=== PATIENT | female | born 1970 | race Caucasian/White ===

== ENCOUNTER → 2018-03-28 | Outpatient (CLI) | payer OTHER ==
--- NOTE | 2018-03-28 14:06 | XR ---
EXAMINATION TYPE: XR elbow complete RT, XR forearm RT DATE OF EXAM: 03/28/2018 CLINICAL HISTORY: pain TECHNIQUE: Frontal, lateral and oblique images of the right elbow are obtained. COMPARISON: None. FINDINGS: There is no acute fracture/dislocation evident of the elbow. No abnormal fat pad signs ar e seen. The overlying soft tissue appears unremarkable. IMPRESSION: There is no acute fracture or dislocation of the elbow. ICD 10 NO FRACTURE, INITIAL EVALUATION EXAMINATION TYPE: XR elbow complete RT, XR forearm RT DATE OF EXAM: 03/28/2018 CLINICAL HISTORY: pain TECHNIQUE: Frontal and lateral images of the right forearm are obtained. COMPARISON: None. FINDINGS: There is no acute fracture/dislocation evident. The joint spaces appear within normal limi ts. The overlying soft tissue appears unremarkable. IMPRESSION: There is no acute fracture or dislocation. ICD 10 NO FRACTURE, INITIAL EVALUATION
== END | disposition home or self-care (01) ==
LOC: RADXRMAIN 13:31
PROVIDERS: ATTEND Emergency Medicine
DX: M25.521 Pain in right elbow (principal); R20.9 Unspecified disturbances of skin sensation

== ENCOUNTER 2018-04-21 12:34 | Observation (INO) | payer OTHER ==
[2018-04-21] MEDS ORDERED: SODIUM CHLORIDE 0.9% 1,000 ML IV STA (14:24)
--- NOTE | 2018-04-21 15:03 | ED ---
Abdominal Pain HPI - General Source: patient Mode of arrival: ambulatory Limitations: no limitations <Susanne Elizondo - Last Filed: 04/21/18 18:43> <Dasia Lewis - Last Filed: 04/21/18 20:35> - General Chief Complaint: Abdominal Pain Stated Complaint: abd pain Time Seen by Provider: 04/21/18 13:51 - History of Present Illness Initial Comments: 47-year-old female patient presents to the emergency department today with several complaints. Patient states that for the last 3 days she has been profusely sweating. Patient states that she is soaking through clothing. Patient states that she does note that she is going through menopause however she has never had sweating this bad. States that she is also developed a rash over her buttocks and thighs. Patient states that this has been going on for the last 2 weeks on and off. Patient denies any drainage from the lesions. There are no blisters. Patient states that they do occasionally itch. Patient states she has also been having nonspecific abdominal pain with bloating especially after meals. Patient states his been going on for the last several days as well. Patient states that she has had some intermittent nausea with no vomiting. She has a history of IBS alternating diarrhea and constipation. She is also reporting generalized prickling sensation intermittently as well. Patient denies any recent fever, chills, shortness breath, chest pain, back pain, dizziness, weakness, hematuria, dysuria, urinary urgency, urinary frequency, headache, visual changes, or any other complaints. (Susanne Elizondo) - Related Data Home Medications Medication Instructions Recorded Confirmed Black Cohosh 540 mg PO DAILY 04/21/18 04/21/18 Cyclobenzaprine [Flexeril] 10 mg PO DAILY 04/21/18 04/21/18 Dicyclomine [Bentyl] 20 mg PO DAILY 04/21/18 04/21/18 Docusate Sodium [Dok] 100 mg PO BID 04/21/18 04/21/18 Etodolac [Lodine] 400 mg PO TID 04/21/18 04/21/18 Gabapentin [Neurontin] 100 mg PO TID 04/21/18 04/21/18 Gabapentin [Neurontin] 300 mg PO DAILY 04/21/18 04/21/18 Ibuprofen [Motrin] 800 mg PO TID PRN 04/21/18 04/21/18 Loratadine [Claritin] 10 mg PO DAILY 04/21/18 04/21/18 Ranitidine HCl [Zantac] 150 mg PO BID 04/21/18 04/21/18 Thiamine [Vitamin B-1] 50 mg PO DAILY 04/21/18 04/21/18 traZODone HCL 75 mg PO HS 04/21/18 04/21/18 Allergies Allergy/AdvReac Type Severity Reaction Status Date / Time No Known Allergies Allergy Verified 04/21/18 19:06 Review of Systems ROS Other: All systems not noted in ROS Statement are negative. <Susanne Elizondo - Last Filed: 04/21/18 18:43> ROS Other: All systems not noted in ROS Statement are negative. <Dasia Lewis - Last Filed: 04/21/18 20:35> ROS Statement: Those systems with pertinent positive or pertinent negative responses have been documented in the HPI. Past Medical History Past Medical History: COPD, GERD/Reflux Additional Past Medical History / Comment(s): ibs History of Any Multi-Drug Resistant Organisms: None Reported Past Surgical History: No Surgical Hx Reported Past Psychological History: Anxiety Smoking Status: Current every day smoker Past Alcohol Use History: Occasional Past Drug Use History: None Reported <Susanne Elizondo - Last Filed: 04/21/18 18:43> General Exam Limitations: no limitations General appearance: alert, in no apparent distress, other (Social well-developed , well-nourished adult female patient in no acute distress. Vital signs upon presentation are temperature 98.4F, pulse 87, respirations 18, blood pressure 132/86, pulse ox 100% on room air.) Eye exam: Present: normal appearance, PERRL, EOMI. Absent: scleral icterus, conjunctival injection, periorbital swelling ENT exam: Present: normal exam, normal oropharynx, mucous membranes moist Respiratory exam: Present: normal lung sounds bilaterally. Absent: respiratory distress, wheezes, rales, rhonchi, stridor Cardiovascular Exam: Present: regular rate, normal rhythm, normal heart sounds. Absent: systolic murmur, diastolic murmur, rubs, gallop, clicks GI/Abdominal exam: Present: soft, normal bowel sounds. Absent: distended, tenderness, guarding, rebound, rigid Neurological exam: Present: alert, oriented X3, CN II-XII intact Psychiatric exam: Present: normal affect, normal mood Skin exam: Present: warm, dry, intact, normal color, rash Expanded Type of lesion: Present: rash Distribution of rash: other (Buttocks, anterior upper thigh, posterior upper thights. Erythematous pustules with no surrounding erythema. Non-petechial, non- vesicular. Consistent with body acne. ) <Susanne Elizondo - Last Filed: 04/21/18 18:43> Vital Signs 04/21/18 04/21/18 12:37 16:30 Temperature 98.4 F Pulse Rate 87 67 Respiratory 18 16 Rate Blood Pressure 132/86 150/82 O2 Sat by Pulse 100 99 Oximetry Medical Decision Making - Lab Data Result diagrams: 04/21/18 15:10 04/21/18 15:10 - EKG Data -: EKG Interpreted by Me - Radiology Data Radiology results: report reviewed <Susanne Elizondo - Last Filed: 04/21/18 18:43> - Lab Data Result diagrams: 04/21/18 15:10 04/21/18 15:10 <Dasia Lewis - Last Filed: 04/21/18 20:35> - Medical Decision Making 47-year-old male patient presented to the emergency department today for evaluation of generalized abdominal discomfort and abdominal bloating. Patient also had rash to the buttocks and left lateral thigh. She is also complaining of sweats. Physical examination did reveal some midepigastric abdominal tenderness, right upper quadrant abdominal tenderness. Labs reviewed and showed an elevated AST at 204, a LT at 328, alkaline phosphatase at 133. Ultrasound of the abdomen was obtained and did show large stone at the gallbladder neck. Case was discussed with Dr. Miller who recommends admission , administration of antibiotics, and surgical evaluations tomorrow. IV fluids will be provided. (Susanne Elizondo) The patient was seen and evaluated independently by the nurse practitioner. Patient with multiple complaints including abdominal bloating and discomfort, noted to have elevated transaminase levels, ultrasound did reveal an acute cholecystitis with a gallbladder neck stone. I was asked to evaluate the patient and consult surgery. I evaluated the patient, upon my evaluation the patient had vague right upper quadrant abdominal pain however patient does report at this time her nausea is resolved and she is feeling hungry. I advised the patient of the lab and ultrasound findings, plan for admission for IV antibiotics and evaluation by general surgical team. Patient is agreeable. She care was discussed with general surgery on-call Dr. Miller whom accepts the patient to his service, recommended IV antibiotics and nothing by mouth status. (Dasia Lewis) - Lab Data Lab Results 04/21/18 04/21/18 04/21/18 Range/Units 15:10 15:10 16:20 WBC 9.0 (3.8-10.6) k/uL RBC 4.66 (3.80-5.40) m/uL Hgb 14.8 (11.4-16.0) gm/dL Hct 44.0 (34.0-46.0) % MCV 94.3 (80.0-100.0) fL MCH 31.7 (25.0-35.0) pg MCHC 33.6 (31.0-37.0) g/dL RDW 12.9 (11.5-15.5) % Plt Count 247 (150-450) k/uL Neutrophils % 57 % Lymphocytes % 31 % Monocytes % 7 % Eosinophils % 2 % Basophils % 0 % Neutrophils # 5.1 (1.3-7.7) k/uL Lymphocytes # 2.8 (1.0-4.8) k/uL Monocytes # 0.6 (0-1.0) k/uL Eosinophils # 0.2 (0-0.7) k/uL Basophils # 0.0 (0-0.2) k/uL Sodium 140 (137-145) mmol/L Potassium 4.6 (3.5-5.1) mmol/L Chloride 105 (98-107) mmol/L Carbon Dioxide 26 (22-30) mmol/L Anion Gap 9 mmol/L BUN 19 H (7-17) mg/dL Creatinine 0.77 (0.52-1.04) mg/dL Est GFR (CKD-EPI)AfAm >90 (>60 ml/min/1.73 sqM) Est GFR (CKD-EPI)NonAf >90 (>60 ml/min/1.73 sqM) Glucose 87 (74-99) mg/dL Calcium 9.9 (8.4-10.2) mg/dL Magnesium 1.9 (1.6-2.3) mg/dL Total Bilirubin 0.5 (0.2-1.3) mg/dL AST 204 H (14-36) U/L ALT 328 H (9-52) U/L Alkaline Phosphatase 133 H (38-126) U/L Total Protein 8.2 (6.3-8.2) g/dL Albumin 4.5 (3.5-5.0) g/dL Amylase 47 (30-110) U/L Lipase 56 (23-300) U/L TSH 1.590 (0.465-4.680) mIU/L Urine Color Yellow Urine Appearance Cloudy H (Clear) Urine pH 5.0 (5.0-8.0) Ur Specific [place] 1.011 (1.001-1.035) Urine Protein Negative (Negative) Urine Glucose (UA) Negative (Negative) Urine Ketones Negative (Negative) Urine Blood Negative (Negative) Urine Nitrite Negative (Negative) Urine Bilirubin Negative (Negative) Urine Urobilinogen <2.0 (<2.0) mg/dL Ur Leukocyte Esterase Trace H (Negative) Urine RBC <1 (0-5) /hpf Urine WBC 5 (0-5) /hpf Ur Squamous Epith Cells 7 H (0-4) /hpf Urine Bacteria Occasional H (None) /hpf Urine Mucus Rare H (None) /hpf - EKG Data EKG Comments: EKG obtained at 1515 shows normal sinus rhythm with a prolonged QT interval. Ventricular rate is 70, NH interval 172, QR mu-ism 86, QT 448, QTC 483. No evidence of ST elevation or depression (Susanne Elizondo) - Radiology Data Ultrasound of the abdomen was obtained. Report was reviewed in its entirety. Impression by Dr. Castro shows large gallstone at the gallbladder neck. No dilated ducts. (Susanne Elizondo) Disposition Decision to Admit Reason: Admit from EC Decision Date: 04/21/18 Decision Time: 18:01 <Susanne Elizondo - Last Filed: 04/21/18 18:43> <Dasia Lewis - Last Filed: 04/21/18 20:35> Clinical Impression: Cholelithiasis, Abdominal pain Disposition: ADMITTED IP TO THIS [facility] Condition: Serious
[2018-04-21 15:15] LABS: Basophils % (A) 0 %; Eosinophils # (A) 0.2 k/uL (0-0.7); Eosinophils % (A) 2 %; HGB 14.8 gm/dL (11.4-16.0); Lymphocytes # (A) 2.8 k/uL (1.0-4.8); Lymphocytes % (A) 31 %; MCH 31.7 pg (25.0-35.0); MCHC 33.6 g/dL (31.0-37.0); MCV 94.3 fL (80.0-100.0); Mean Platelet Volume 7.8; Monocytes # (A) 0.6 k/uL (0-1.0); Monocytes % (A) 7 %; Neutrophils # (A) 5.1 k/uL (1.3-7.7); Neutrophils % (A) 57 %; Platelet Count 247 k/uL (150-450); RBC 4.66 m/uL (3.80-5.40); RDW 12.9 % (11.5-15.5)
[2018-04-21 15:40] LABS: ALT 328 U/L (9-52); AST 204 U/L (14-36); Albumin 4.5 g/dL (3.5-5.0); Alkaline Phosphatase 133 U/L (38-126); Amylase 47 U/L (30-110); Anion Gap 9 mmol/L; Blood Urea Nitrogen 19 mg/dL (7-17); Calcium 9.9 mg/dL (8.4-10.2); Carbon Dioxide 26 mmol/L (22-30); Chloride 105 mmol/L (98-107); Glucose 87 mg/dL (74-99); Lipase 56 U/L (23-300); Magnesium 1.9 mg/dL (1.6-2.3); Potassium 4.6 mmol/L (3.5-5.1); Sodium 140 mmol/L (137-145); Total Bilirubin 0.5 mg/dL (0.2-1.3); Total Protein 8.2 g/dL (6.3-8.2)
[2018-04-21 16:37] LABS: Appearance,Urine Cloudy (Clear); Bacteria,Urine Occasional /hpf; Bilirubin,Urine Negative (Negative); Blood,Urine Negative (Negative); Color,Urine Yellow; Glucose,Urine (UA) Negative (Negative); Ketones,Urine Negative (Negative); Leukocyte Esterase,Urine Trace (Negative); Mucus,Urine Rare /hpf; Nitrite,Urine Negative (Negative); Protein,Urine Negative (Negative); RBC,Urine <1 /hpf (0-5); Specific Gravity,Urine 1.011 (1.001-1.035); Squamous Epithelial Cell,Urine 7 /hpf (0-4); Urobilinogen,Urine <2.0 mg/dL (<2.0); WBC,Urine 5 /hpf (0-5)
--- NOTE | 2018-04-21 17:19 | US ---
EXAMINATION TYPE: US abdomen limited DATE OF EXAM: 04/21/2018 COMPARISON: NONE CLINICAL HISTORY: Elevated LFT; Abd Pain. EXAM MEASUREMENTS: Liver Length: 17.5 cm Gallbladder Wall: 0.3 cm CBD: 0.4 cm Right Kidney: 10.7 x 5.0 x 5.2 cm Limited due to bowel gas. Pancreas: Appears slightly increased echogenicity, Tail obscured by overlying bowel gas Liver: wnl Gallbladder: Cholelithiasis 1.6 x 1.4 x 1.7 cm Evidence for sonographic Pichardo's sign: Yes CBD: wnl Right Kidney: wnl IMPRESSION: Large gallstone at the gallbladder neck. No dilated ducts.
[2018-04-21] MEDS ORDERED: NALOXONE 0.4 MG/ML 1 ML VIAL IV PRN (17:47)
[2018-04-21] MEDS ORDERED: ACETAMINOPHEN TAB 325 MG TAB PO PRN (17:47)
[2018-04-21] MEDS ORDERED: MORPHINE SULFATE 4 MG/ML SYRINGE IV PRN (17:47)
[2018-04-21] MEDS ORDERED: ONDANSETRON 4 MG/2 ML VIAL IVP PRN (17:47)
[2018-04-21] MEDS ORDERED: PIPERACILLIN-TAZOBACTAM 3.375 GM in DEXTROSE/WATER 1 50ML.BAG IVPB STA (17:50)
[2018-04-21] MEDS: LORazepam 1 MG TAB PO PRN (19:51)
[2018-04-21] MEDS: NICOTINE 21MG/24HR PATCH TRANSDERM SCH (19:53)
[2018-04-21 20:36] VITALS: BMI 31.2
[2018-04-21] MEDS: SODIUM CHLORIDE 0.9% 1,000 ML IV SCH (20:52)
[2018-04-22] MEDS: LORazepam 1 MG TAB PO PRN ×2 (04:15→19:02)
[2018-04-22 06:54] LABS: Basophils % (A) 0 %; Eosinophils # (A) 0.1 k/uL (0-0.7); Eosinophils % (A) 1 %; HCT 38.4 % (34.0-46.0); HGB 12.9 gm/dL (11.4-16.0); Lymphocytes # (A) 2.1 k/uL (1.0-4.8); Lymphocytes % (A) 28 %; MCH 31.4 pg (25.0-35.0); MCHC 33.5 g/dL (31.0-37.0); MCV 93.9 fL (80.0-100.0); Mean Platelet Volume 7.7; Monocytes # (A) 0.5 k/uL (0-1.0); Monocytes % (A) 7 %; Neutrophils # (A) 4.5 k/uL (1.3-7.7); Neutrophils % (A) 61 %; Platelet Count 195 k/uL (150-450); RBC 4.09 m/uL (3.80-5.40); WBC 7.3 k/uL (3.8-10.6)
[2018-04-22 07:11] LABS: ALT 251 U/L (9-52); AST 148 U/L (14-36); Albumin 3.5 g/dL (3.5-5.0); Alkaline Phosphatase 111 U/L (38-126); Anion Gap 6 mmol/L; Blood Urea Nitrogen 16 mg/dL (7-17); Carbon Dioxide 23 mmol/L (22-30); Chloride 110 mmol/L (98-107); Glucose 93 mg/dL (74-99); Potassium 4.3 mmol/L (3.5-5.1); Sodium 139 mmol/L (137-145); Total Bilirubin 0.5 mg/dL (0.2-1.3); Total Protein 6.6 g/dL (6.3-8.2)
[2018-04-22] MEDS ORDERED: NICOTINE 21MG/24HR PATCH TRANSDERM SCH (09:00)
[2018-04-22] MEDS: NICOTINE 21MG/24HR PATCH TRANSDERM SCH ×2 (10:12→17:16)
[2018-04-22] MEDS ORDERED: IV FLUID CONTINUATION 1,000 ML IV ONE (12:03)
[2018-04-22] MEDS ORDERED: HYDROmorphone 0.5 MG/0.5 ML SYRINGE IVP PRN (12:08)
[2018-04-22] MEDS ORDERED: SCOPOLAMINE 1.5MG/72HR PATCH TRANSDERM ONE (12:08)
[2018-04-22] MEDS ORDERED: LACTATED RINGERS 1,000 ML IV SCH (12:15)
[2018-04-22] MEDS ORDERED: DEXAMETHASONE SOD PHOSPHATE 10 MG/ML 1 ML VIAL IV ONE (12:30)
[2018-04-22] MEDS ORDERED: DEXAMETHASONE SOD PHOS (MDV) 100 MG/10 ML VIAL IV ONE (12:42)
[2018-04-22] MEDS ORDERED: ONDANSETRON 4 MG/2 ML VIAL IVP ONE (12:43)
[2018-04-22] MEDS ORDERED: HEPARIN SODIUM,PORCINE 5,000 UNIT/ML 1 ML VIAL SQ ONE (12:56)
--- NOTE | 2018-04-22 12:58 | P.GSHP ---
History of Present Illness H&P Date: 04/22/18 Chief Complaint: Right upper quadrant pain Some 47-year-old female who presents emergency room with complaints of abdominal pain. Patient states she's had right upper quadrant pain off and on for last several years. Patient's workup found have evidence of cholelithiasis. Past Medical History Past Medical History: COPD, GERD/Reflux Additional Past Medical History / Comment(s): ibs History of Any Multi-Drug Resistant Organisms: None Reported Past Surgical History: No Surgical Hx Reported Past Anesthesia/Blood Transfusion Reactions: No Reported Reaction Additional Past Anesthesia/Blood Transfusion Reaction / Comment(s): [place] teeth extraction Past Psychological History: Anxiety Smoking Status: Current every day smoker Past Alcohol Use History: Occasional Past Drug Use History: None Reported - Past Family History Mother Additional Family Medical History / Comment(s): Emphazema Father Family Medical History: Cancer Additional Family Medical History / Comment(s): Cancer originated in lungs. Medications and Allergies Home Medications Medication Instructions Recorded Confirmed Type Black Cohosh 540 mg PO DAILY 04/21/18 04/21/18 History Cyclobenzaprine [Flexeril] 10 mg PO DAILY 04/21/18 04/21/18 History Dicyclomine [Bentyl] 20 mg PO DAILY 04/21/18 04/21/18 History Docusate Sodium [Dok] 100 mg PO BID 04/21/18 04/21/18 History Etodolac [Lodine] 400 mg PO TID 04/21/18 04/21/18 History Gabapentin [Neurontin] 100 mg PO TID 04/21/18 04/21/18 History Gabapentin [Neurontin] 300 mg PO DAILY 04/21/18 04/21/18 History Ibuprofen [Motrin] 800 mg PO TID PRN 04/21/18 04/21/18 History Loratadine [Claritin] 10 mg PO DAILY 04/21/18 04/21/18 History Ranitidine HCl [Zantac] 150 mg PO BID 04/21/18 04/21/18 History Thiamine [Vitamin B-1] 50 mg PO DAILY 04/21/18 04/21/18 History traZODone HCL 75 mg PO HS 04/21/18 04/21/18 History Allergies Allergy/AdvReac Type Severity Reaction Status Date / Time No Known Allergies Allergy Verified 04/21/18 20:37 Surgical - Exam Vital Signs Temp Pulse Resp BP Pulse Ox 98.4 F 87 18 132/86 100 04/21/18 12:37 04/21/18 12:37 04/21/18 12:37 04/21/18 12:37 04/21/18 12:37 - General well developed, no distress - Eyes PERRL - ENT normal pinna - Neck no masses - Respiratory normal expansion - Cardiovascular Rhythm: regular - Abdomen Mild right quadrant tenderness Abdomen: soft Results - Labs 04/22/18 06:38 04/22/18 06:38 Abnormal Lab Results - Last 24 Hours (Table) 04/21/18 04/21/18 04/22/18 Range/Units 15:10 16:20 06:38 Chloride 110 H (98-107) mmol/L BUN 19 H (7-17) mg/dL AST 204 H 148 H (14-36) U/L ALT 328 H 251 H (9-52) U/L Alkaline Phosphatase 133 H (38-126) U/L Urine Appearance Cloudy H (Clear) Ur Leukocyte Esterase Trace H (Negative) Ur Squamous Epith Cells 7 H (0-4) /hpf Urine Bacteria Occasional H (None) /hpf Urine Mucus Rare H (None) /hpf Diabetes panel 04/21/18 04/22/18 Range/Units 15:10 06:38 Sodium 140 139 (137-145) mmol/L Potassium 4.6 4.3 (3.5-5.1) mmol/L Chloride 105 110 H (98-107) mmol/L Carbon Dioxide 26 23 (22-30) mmol/L BUN 19 H 16 (7-17) mg/dL Creatinine 0.77 0.71 (0.52-1.04) mg/dL Glucose 87 93 (74-99) mg/dL Calcium 9.9 9.0 (8.4-10.2) mg/dL AST 204 H 148 H (14-36) U/L ALT 328 H 251 H (9-52) U/L Alkaline Phosphatase 133 H 111 (38-126) U/L Total Protein 8.2 6.6 (6.3-8.2) g/dL Albumin 4.5 3.5 (3.5-5.0) g/dL Thyroid panel 04/21/18 Range/Units 15:10 TSH 1.590 (0.465-4.680) mIU/L Calcium panel 04/21/18 04/22/18 Range/Units 15:10 06:38 Calcium 9.9 9.0 (8.4-10.2) mg/dL Albumin 4.5 3.5 (3.5-5.0) g/dL Pituitary panel 04/21/18 04/22/18 Range/Units 15:10 06:38 Sodium 140 139 (137-145) mmol/L Potassium 4.6 4.3 (3.5-5.1) mmol/L Chloride 105 110 H (98-107) mmol/L Carbon Dioxide 26 23 (22-30) mmol/L BUN 19 H 16 (7-17) mg/dL Creatinine 0.77 0.71 (0.52-1.04) mg/dL Glucose 87 93 (74-99) mg/dL Calcium 9.9 9.0 (8.4-10.2) mg/dL TSH 1.590 (0.465-4.680) mIU/L Adrenal panel 04/21/18 04/22/18 Range/Units 15:10 06:38 Sodium 140 139 (137-145) mmol/L Potassium 4.6 4.3 (3.5-5.1) mmol/L Chloride 105 110 H (98-107) mmol/L Carbon Dioxide 26 23 (22-30) mmol/L BUN 19 H 16 (7-17) mg/dL Creatinine 0.77 0.71 (0.52-1.04) mg/dL Glucose 87 93 (74-99) mg/dL Calcium 9.9 9.0 (8.4-10.2) mg/dL Total Bilirubin 0.5 0.5 (0.2-1.3) mg/dL AST 204 H 148 H (14-36) U/L ALT 328 H 251 H (9-52) U/L Alkaline Phosphatase 133 H 111 (38-126) U/L Total Protein 8.2 6.6 (6.3-8.2) g/dL Albumin 4.5 3.5 (3.5-5.0) g/dL - Imaging US - abdomen: report reviewed (Cholelithiasis, chronic cholecystitis) Assessment and Plan Assessment: Cholelithiasis, chronic cholecystitis. We'll perform laparoscopic cholecystectomy.
[2018-04-22] MEDS ORDERED: GLYCOPYRROLATE 0.2 MG/ML 2 ML VIAL ONE (13:03)
[2018-04-22] MEDS ORDERED: ROCURONIUM BROMIDE 10 MG/ML 10 ML VIAL IV ONE (13:03)
[2018-04-22] MEDS ORDERED: HYDROmorphone (PF) 1 MG/ML ONE (13:03)
[2018-04-22] MEDS ORDERED: SUCCINYLCHOLINE CHLORIDE 100 MG/5 ML SYR IV ONE (13:03)
[2018-04-22] MEDS ORDERED: PROPOFOL 10 MG/ML 20 ML VIAL IV ONE (13:03)
[2018-04-22] MEDS ORDERED: NEOSTIGMINE 1 MG/ML 10 ML VIAL ONE (13:03)
[2018-04-22] MEDS ORDERED: MIDAZOLAM 2 MG/2 ML VIAL ONE (13:03)
[2018-04-22] MEDS ORDERED: LIDOCAINE 1% INJ 10MG/ML (20 ML MDV) ONE (13:03)
[2018-04-22] MEDS ORDERED: fentaNYL (PF) 50 MCG/ML 2 ML AMP ONE (13:03)
[2018-04-22] MEDS ORDERED: BUPIVACAINE (PF) 0.5% 30 ML VIAL SQ ONE ×2 (13:20→13:30)
[2018-04-22] MEDS ORDERED: SODIUM CHLORIDE 0.9% 50 ML with ceFAZolin 2,000 MG IV ONE ×2 (13:29)
[2018-04-22] MEDS ORDERED: NALOXONE 0.4 MG/ML 1 ML VIAL IV PRN (14:00)
[2018-04-22] MEDS ORDERED: HYDROcodone/APAP 5-325MG 1 EACH TAB PO PRN (14:00)
[2018-04-22] MEDS ORDERED: HYDROmorphone 1 MG/ML 1 ML SYRINGE IVP PRN (14:00)
[2018-04-22] MEDS ORDERED: ACETAMINOPHEN TAB 325 MG TAB PO PRN (14:00)
[2018-04-22] MEDS ORDERED: ONDANSETRON 4 MG/2 ML VIAL IVP PRN (14:00)
--- NOTE | 2018-04-22 14:08 | P.OP ---
Date of Procedure: 04/22/18 Preoperative Diagnosis: Cholecystitis Postoperative Diagnosis: Cholecystitis Procedure(s) Performed: Laparoscopic cholecystectomy Anesthesia: JONATHAN Surgeon: Darren Miller Estimated Blood Loss (ml): 5 Pathology: other (gall bladder) Condition: stable Disposition: PACU Description of Procedure: The patient was placed on the operating table. The patient received a general endotracheal tube anesthesia. The patients abdomen was prepped and draped in the usual sterile fashion. Through an infraumbilical stab incision, the fascia of the anterior abdominal wall was grasped with a pair of Kochers and then the Veress needle was placed in the peritoneal cavity. Position of the Veress needle was confirmed with positive drop test. The abdomen was then insufflated. After adequate insufflation, the 10 mm trocar was placed in the peritoneal cavity. Following this the laparoscope was placed in the peritoneal cavity. The patient was placed in the head-up, right side up position and then a 5 mm trocar was placed in the right lateral and right subcostal position under direct visualization. A 8 mm trocar was placed in the epigastric position. The gallbladder was grasped in the fundus and infundibulum. Traction on the gallbladder was placed in the lateral and the cephalad positions. The triangle of Calot was visualized.. The cystic duct was bluntly dissected until the union of the cystic duct and common bile duct was seen. The cystic duct was then divided and sealed with the Harmonic scissors. A PDS Endoloop was then placed throughout the cystic duct stump. The cystic artery divided and sealed with the Harmonic scissors. The gallbladder was then removed from the liver bed using Harmonic scissors. The gallbladder was then extracted through the epigastric port site. Operative field was checked for any bleeding spots and Harmonic scissors was used to coagulate the liver bed. The abdomen was irrigated. The trocars were removed. The skin was closed using interrupted 3-0 Vicryl suture. Dermabond dressing were applied. The patient tolerated the procedure well.
[2018-04-22] MEDS: SODIUM CHLORIDE 0.9% 1,000 ML IV SCH (14:14)
[2018-04-22] MEDS: HYDROmorphone 0.5 MG/0.5 ML SYRINGE IVP ONE ×2 (14:25→14:52)
[2018-04-22] MEDS: LACTATED RINGERS 1,000 ML IV ONE (17:15)
[2018-04-22] MEDS: KETOROLAC 30 MG/ML 1 ML VIAL IVP SCH (17:20)
[2018-04-22] MEDS ORDERED: diphenhydrAMINE 50 MG/ML 1 ML VIAL IVP PRN (20:45)
[2018-04-22] MEDS ORDERED: diphenhydrAMINE 25 MG CAP PO PRN (20:45)
[2018-04-22] MEDS ORDERED: FAMOTIDINE 20 MG TAB PO SCH (21:00)
[2018-04-22] MEDS ORDERED: traZODone HCL 50 MG TAB PO SCH (21:00)
[2018-04-22] MEDS ORDERED: GABAPENTIN 100 MG CAP PO SCH (22:00)
[2018-04-22] MEDS: FAMOTIDINE 20 MG TAB PO SCH (22:18)
[2018-04-22] MEDS: valACYclovir HCL 1,000 MG TABLET PO SCH (22:19)
--- NOTE | 2018-04-23 00:22 | CONS ---
CONSULTATION REASON FOR CONSULTATION: Advice regarding COPD and multiple other medical issues requested by Dr. Miller. HISTORY OF PRESENT ILLNESS: This 47-year-old woman with a past medical history of COPD GERD, irritable bowel syndrome being followed by Dr. Adamaris Crabtree in the outpatient setting, underwent laparoscopic cholecystectomy for cholecystitis by Dr. Miller. The patient also has some rashes, which is in the upper part of the legs and the lower part of the abdomen which is present for last few days. The patient apparently also had eruption of genitalis also, according to her. Patient also has history of hepatitis C. There is no history of fever, rigors or chills. No history of headache, loss of consciousness, seizures. PAST MEDICAL HISTORY: History of COPD, GERD, irritable bowel syndrome, anxiety. MEDICATIONS: Prior to admission include: 1. Trazodone 75 mg q.h.s. 2. Vitamin B1 50 mg. 3. Zantac 150 mg p.o. b.i.d. 4. Claritin 10 mg p.o. daily. 5. Motrin 800 mg t.i.d. p.r.n. 6. Neurontin 400 mg t.i.d. and 300 mg daily. 8. Dok 100 mg p.o. b.i.d. 9. Bentyl 20 mg b.i.d. 10.Flexeril 10 mg p.o. daily. ALLERGIES: None. FAMILY HISTORY: History of cancer, emphysema in the family. SOCIAL HISTORY: History of smoking, no history of alcohol intake. REVIEW OF SYSTEMS: ENT: No diminished hearing or diminished vision. CARDIOVASCULAR: No angina or palpitations. Respiratory system: As mentioned earlier. GI: As mentioned earlier. : No dysuria or hematuria. Nervous system: No numbness or weakness. Allergy/Immunology: No asthma or hayfever. Musculoskeletal as mentioned earlier. Hematology/oncology: No history of anemia. Endocrine: No history of diabetes or hypothyroidism. CONSTITUTIONAL: As mentioned earlier. Dermatology: Negative. Rheumatology: Negative. Psychiatry: As mentioned earlier. PHYSICAL EXAMINATION: Alert and oriented times three. Pulse is 101, blood pressure 119/70, respiration 16, temperature normal, pulse ox 98% on 2 L. HEENT is conjunctivae normal. Oral mucosa moist. Neck is no jugular venous distention. No carotid bruit. No lymph node enlargement. Cardiovascular System: S1, S2 muffled. Respirations: Breath sounds diminished in the bases. Few rhonchi and no crackles. ABDOMEN: Soft, status post surgery. Bowel sounds diminished. Legs no edema. No swelling. NERVOUS SYSTEM: Higher functions as mentioned earlier. Moves all four extremities. No focal motor or sensory deficits. Lymphatics: No lymph nodes palpable in the neck, axillae or groin. SKIN: Maculopapular rash present. LABS: At this time shows WBC 11.2, hemoglobin 12.9, and AST is 148 and ALT is 251, alkaline phosphatase 131. UA noted. ASSESSMENT: 1. Acute cholecystitis, status post laparoscopic cholecystectomy. 2. Elevated LFTs, possibly mild hepatitis. 3. Chronic obstructive pulmonary disease. 4. Gastroesophageal reflux disease. 5. Irritable bowel syndrome. 6. Hepatitis C. 7. History of anxiety. 8. History of nicotine dependence. 9. History of herpes genitalis. 10.Skin rash, possible allergic. RECOMMENDATIONS AND DISCUSSION: In this 47-year-old woman who presented with multiple medical problems, we will monitor the patient closely, continue the current medications, management and symptomatic treatment. Otherwise I would recommend DVT prophylaxis and Benadryl and local treatment for the rash. Course of Valtrex. We will follow the patient closely. DVT prophylaxis. Incentive spirometer. Resume the home medications. Thank you, Dr. Miller for letting us participate in the care of this patient. Patient may be asked to follow up with Dr. Adamaris Crabtree in the outpatient setting. MMODL / VIVIENN: [id number] / MTDD
[2018-04-23 01:03] VITALS: RESP 18
[2018-04-23] MEDS: KETOROLAC 30 MG/ML 1 ML VIAL IVP SCH ×2 (01:42→08:53)
[2018-04-23 07:02] LABS: Basophils % (A) 0 %; Eosinophils # (A) 0.1 k/uL (0-0.7); Eosinophils % (A) 1 %; HCT 36.7 % (34.0-46.0); HGB 12.2 gm/dL (11.4-16.0); Lymphocytes # (A) 2.2 k/uL (1.0-4.8); Lymphocytes % (A) 28 %; MCH 31.4 pg (25.0-35.0); MCHC 33.3 g/dL (31.0-37.0); MCV 94.2 fL (80.0-100.0); Mean Platelet Volume 7.5; Monocytes # (A) 0.6 k/uL (0-1.0); Monocytes % (A) 8 %; Neutrophils # (A) 4.8 k/uL (1.3-7.7); Neutrophils % (A) 61 %; Platelet Count 193 k/uL (150-450); RDW 12.9 % (11.5-15.5); WBC 7.9 k/uL (3.8-10.6)
[2018-04-23 07:16] LABS: ALT 200 U/L (9-52); AST 98 U/L (14-36); Albumin 3.4 g/dL (3.5-5.0); Alkaline Phosphatase 113 U/L (38-126); Anion Gap 7 mmol/L; Blood Urea Nitrogen 15 mg/dL (7-17); Calcium 9.1 mg/dL (8.4-10.2); Carbon Dioxide 24 mmol/L (22-30); Chloride 108 mmol/L (98-107); Glucose 92 mg/dL (74-99); Potassium 4.1 mmol/L (3.5-5.1); Sodium 139 mmol/L (137-145); Total Bilirubin 0.3 mg/dL (0.2-1.3); Total Protein 6.3 g/dL (6.3-8.2)
[2018-04-23] MEDS ORDERED: CYCLOBENZAPRINE 10 MG TAB PO SCH ×2 (09:00)
[2018-04-23] MEDS ORDERED: GABAPENTIN 300 MG CAP PO SCH ×2 (09:00)
[2018-04-23] MEDS ORDERED: ENOXAPARIN 40 MG/0.4 ML SYRINGE SQ SCH (09:00)
[2018-04-23] MEDS ORDERED: LORATADINE 10 MG TAB PO SCH (09:00)
[2018-04-23] MEDS ORDERED: THIAMINE 50 MG PO SCH (09:00)
[2018-04-23] MEDS: FAMOTIDINE 20 MG TAB PO SCH (09:07)
[2018-04-23] MEDS: valACYclovir HCL 1,000 MG TABLET PO SCH (09:07)
[2018-04-23] MEDS: NICOTINE 21MG/24HR PATCH TRANSDERM SCH (09:07)
[2018-04-23] MEDS: LORazepam 1 MG TAB PO PRN (09:08)
--- NOTE | 2018-04-23 10:09 | P.DS ---
Providers Date of admission: 04/21/18 17:39 Expected date of discharge: 04/23/18 Attending physician: Darren Miller Consults: 04/22/18 14:00 Consult Physician Routine Consulting Provider: Igor Jewell Consult Reason/Comments: Management Do you want consulting provider notified?: Yes Primary care physician: [facility] Course: This a 47-year-old female who is admitted to the hospital. Patient underwent laparoscopic cholestatic. Her postoperative stay was unremarkable. Please see hospital chart for details. Procedures: Laparoscopic cholecystectomy Patient Condition at Discharge: Good Plan - Discharge Summary Discharge Rx Participant: Yes New Discharge Prescriptions: New Docusate [Colace] 100 mg PO BID #20 capsule HYDROcodone/APAP 7.5-325MG [[place] 7.5-325] 1 tab PO Q4H PRN 3 Days #18 tab PRN Reason: Pain No Action Cyclobenzaprine [Flexeril] 10 mg PO DAILY traZODone HCL 75 mg PO HS Thiamine [Vitamin B-1] 50 mg PO DAILY Etodolac [Lodine] 400 mg PO TID Ranitidine HCl [Zantac] 150 mg PO BID Loratadine [Claritin] 10 mg PO DAILY Docusate Sodium [Dok] 100 mg PO BID Dicyclomine [Bentyl] 20 mg PO DAILY [place] 540 mg PO DAILY Ibuprofen [Motrin] 800 mg PO TID PRN PRN Reason: Pain Gabapentin [Neurontin] 300 mg PO DAILY Gabapentin [Neurontin] 100 mg PO TID Discharge Medication List [place] 540 mg PO DAILY 04/21/18 [History] Cyclobenzaprine [Flexeril] 10 mg PO DAILY 04/21/18 [History] Dicyclomine [Bentyl] 20 mg PO DAILY 04/21/18 [History] Docusate Sodium [Dok] 100 mg PO BID 04/21/18 [History] Etodolac [Lodine] 400 mg PO TID 04/21/18 [History] Gabapentin [Neurontin] 100 mg PO TID 04/21/18 [History] Gabapentin [Neurontin] 300 mg PO DAILY 04/21/18 [History] Ibuprofen [Motrin] 800 mg PO TID PRN 04/21/18 [History] Loratadine [Claritin] 10 mg PO DAILY 04/21/18 [History] Ranitidine HCl [Zantac] 150 mg PO BID 04/21/18 [History] Thiamine [Vitamin B-1] 50 mg PO DAILY 04/21/18 [History] traZODone HCL 75 mg PO HS 04/21/18 [History] Docusate [Colace] 100 mg PO BID #20 capsule 04/23/18 [Rx] HYDROcodone/APAP 7.5-325MG [[place] 7.5-325] 1 tab PO Q4H PRN 3 Days #18 tab 04/23 [Rx] Follow up Appointment(s)/Referral(s): Adamaris Crabtree MD [Primary Care Provider] - 1-2 days Darren Miller MD [STAFF PHYSICIAN] - 1 Week
[2018-04-23] MEDS: LACTATED RINGERS 1,000 ML IV ONE (11:26)
[2018-04-23 12:30] VITALS: BP 125/82; PULSE 92; TEMP 97.7
[2018-04-23] MEDS ORDERED: THIAMINE 100 MG TAB PO SCH (13:00)
--- NOTE | 2018-04-23 13:03 | PN ---
PROGRESS NOTE DATE OF SERVICE: 04/24/2018 This 47-year-old woman was admitted after cholecystectomy, is improving significantly. The patient is being followed by Dr. Adamaris Crabtree and Carmen Guevara. No chest pain. No palpitations. No fever. PHYSICAL EXAM: Alert and oriented x3. The pulse is 85, blood pressure 125/81, respiration 18, temp 97.1, pulse ox 98% on room air. HEENT: Conjunctivae normal. NECK: No jugular venous distension. CARDIOVASCULAR: S1, S2, muffled. RESPIRATORY: Breath sounds diminished at the bases, no rhonchi, no crackles. ABDOMEN: Soft, status post surgery. LEGS: No edema, no swelling. NERVOUS SYSTEM: No focal deficits. LABS: CBC within normal limits and AST is 98 and ALT is 200. ASSESSMENT: 1. Acute cholecystitis, status post laparoscopic cholecystectomy. 2. Elevated LFTs, improving. 3. Chronic obstructive pulmonary disease. 4. Gastroesophageal reflux disease. 5. Irritable bowel syndrome. 6. History of hepatitis C. 7. Anxiety. 8. History of nicotine dependence. 9. History of herpes genitalis. 10.Skin rash, possibly allergic. RECOMMENDATION: Recommend to continue current management and symptomatic treatment. Otherwise, I would recommend smoking cessation. Resume the home medications, incentive spirometry, DVT prophylaxis and closely follow with primary physician. Rest of the recommendations per Dr. Miller. Further recommendations to follow. MMODL / IJN: [id number] /
[2018-04-23] MEDS ORDERED: traZODone HCL 50 MG TAB PO SCH (21:00)
[2018-04-24] MEDS ORDERED: THIAMINE 100 MG TAB PO SCH (09:00)
== END 2018-04-23 12:50 | disposition home or self-care (01) ==
LOC: EC 12:34 → 6PED 17:39
PROVIDERS: ADMIT Surgery; ATTEND Surgery
DX: K80.10 Calculus of gallbladder with chronic cholecystitis without obstruction (principal); K21.9 Gastro-esophageal reflux disease without esophagitis; J44.9 Chronic obstructive pulmonary disease, unspecified; K58.9 Irritable bowel syndrome, unspecified; K58.2 Mixed irritable bowel syndrome; R21 Rash and other nonspecific skin eruption; F41.9 Anxiety disorder, unspecified; F17.200 Nicotine dependence, unspecified, uncomplicated; Z79.899 Other long term (current) drug therapy; Z80.1 Family history of malignant neoplasm of trachea, bronchus and lung; Z82.5 Family history of asthma and other chronic lower respiratory diseases; B19.20 Unspecified viral hepatitis C without hepatic coma; A60.00 Herpesviral infection of urogenital system, unspecified
CPT/HCPCS: 47562; 99285 ×2; 96365 ×2; 96361 ×4; 96366; 36415; 93005 ×2; 81025 ×2; 88304; 80053 ×3; 84443; 82150; 83690; 83735; 85025 ×3; 81001; 76705; G0378 ×3; S4990 ×3; J2250; J1644; J2710; J2405; J2001; J1650; J3010; J1885 ×2; J1170 ×2; J2543; J0690; J1100; J0330; J2704

== ENCOUNTER → 2023-03-08 | Outpatient (CLI) | payer OTHER ==
--- NOTE | 2023-03-09 07:42 | MM ---
Reason for Exam: Screening (asymptomatic). Patient History: Menarche at age 11. First Full-Term at age 21. Postmenopausal. Risk Values: V[place] 5 year model risk: 1.0%. NCI Lifetime model risk: 8.5%. Tissue Density: The breast tissue is heterogeneously dense. This may lower the sensitivity of mammography. Findings: Analyzed By CAD. There is no suspicious group of microcalcifications or new suspicious mass in either breast. Overall Assessment: Negative, BI-RAD 1 Management: Screening Mammogram of both breasts in [address] [facility] will attempt to contact patient to return for supplemental views and ultrasound if indicated. Patient should continue monthly self-breast exams. A clinical breast exam by your physician is recommended on an annual basis. This exam should not preclude additional follow-up of suspicious palpable abnormalities. Note on Vinita scores and lifetime risk: 1. A Vinita score greater than 3% is considered moderate risk. If this is the case, consider specialist referral to assess eligibility for a risk reducing agent. 2. If overall lifetime risk for the development of breast cancer is 20% or higher, the patient may qualify for future screening with alternating mammogram and breast MRI. Electronically signed and approved by: Thomas Alston DO
== END | disposition home or self-care (01) ==
LOC: RADMAMWWP 15:24
PROVIDERS: ATTEND Family Medicine
DX: Z12.31 Encounter for screening mammogram for malignant neoplasm of breast (principal); Z78.0 Asymptomatic menopausal state
CPT/HCPCS: 77063; 77067

== ENCOUNTER 2023-09-07 07:48 | Day surgery (SDC) | payer OTHER ==
[2023-09-05 15:52] VITALS: BMI 37.0
[2023-09-07] MEDS ORDERED: LACTATED RINGERS 1,000 ML IV SCH (08:03)
[2023-09-07 08:30] VITALS: RESP 16; TEMP 98
[2023-09-07] MEDS ORDERED: PROPOFOL 10 MG/ML 20 ML VIAL IV ONE (08:40)
[2023-09-07] MEDS ORDERED: LIDOCAINE 1% INJ 10MG/ML (20 ML MDV) ONE (08:40)
--- NOTE | 2023-09-07 09:04 | P.PCN ---
Date of Procedure: 09/07/23 Procedure(s) Performed: Brief history: Patient is a pleasant 53-year-old white scheduled for an elective upper endoscopy as well as colonoscopy as a part of evaluation of GERD/change in bowel habits Procedure performed: Esophagogastroduodenoscopy with biopsy Colonoscopy snare polypectomy Preoperative diagnosis: GERD Change in bowel habits Anesthesia: MAC Procedure: After informed consent was obtained from the patient was brought into the endoscopy unit and IV sedation was administered by anesthesia under continuous monitoring. Initially upper endoscopy was done. The Olympus GF 160 video endoscope was inserted inserted into the mouth and esophagus intubated without any difficulty and was gradually advanced into the stomach and duodenum and carefully examined. The bulb and second part of the duodenum appeared normal. The scope was then withdrawn into the stomach adequately insufflated with air and upon careful examination the antrum and body, cardia and fundus appeared normal. The scope was then withdrawn into the esophagus. The GE junction was located at 40 cm to the incisors. It appeared regular with no erythema erosions or ulcerations. Rest of the esophagus appeared normal. Patient tolerated the procedure well. At this time the patient continued to remain sedation. Initial digital rectal examination was normal. Olympus CF 160 video colonoscope was then inserted into the rectum and gradually advanced to the cecum without any difficulty. Careful examination was performed as the scope was gradually being withdrawn. The prep was excellent. The cecum, we normal. Ascending colon there was a 3 mm polyp removed by cold biopsy. In the transverse colon there was a 5 mm polyp removed by cold snare polyp rectum he. In the descending colon there was a 3 mm and 6 mm polyp removed by cold snare polypectomy. Rest of the descending colon, sigmoid colon and rectum appeared normal. Retroflexion was performed in the rectum and no lesions were noted. Patient tolerated the procedure well. Impression: 1. Upper endoscopy revealed mild antral gastritis but no evidence of esophagitis or peptic ulcer disease 2. Colonoscopy revealed; a) 3 mm ascending colon polyp status post cold biopsy b) 5 mm transverse colon polyp status post cold snare polypectomy c) 3 mm and 6 mm descending colon polyp status post cold snare polypectomy Recommendations: Findings of this examination were discussed with the patient as well as a family. She was advised to follow with the biopsy results. Continue with Tagamet 300 mg daily as needed and follow antireflux measures. Recommend repeat colonoscopy in 5 years..
[2023-09-07 10:11] VITALS: BP 122/76; PULSE 72
== END 2023-09-07 09:51 | disposition home or self-care (01) ==
LOC: ORWHC2ENDO 07:48
PROVIDERS: ATTEND Internal Medicine Gastroenterology
DX: D12.2 Benign neoplasm of ascending colon (principal); D12.3 Benign neoplasm of transverse colon; D12.4 Benign neoplasm of descending colon; K29.50 Unspecified chronic gastritis without bleeding; K21.9 Gastro-esophageal reflux disease without esophagitis; R19.4 Change in bowel habit; K63.5 Polyp of colon; J44.9 Chronic obstructive pulmonary disease, unspecified; F17.200 Nicotine dependence, unspecified, uncomplicated; K58.9 Irritable bowel syndrome, unspecified; Z79.899 Other long term (current) drug therapy
CPT/HCPCS: 88305; 45380; 45385; 43239; J2001; J2704

== ENCOUNTER 2023-10-26 13:02 | Emergency (ER) | payer OTHER ==
[2023-10-26] MEDS ORDERED: ONDANSETRON 4 MG/2 ML VIAL IVP STA (14:05)
[2023-10-26] MEDS ORDERED: SODIUM CHLORIDE 0.9% 1,000 ML IV STA (14:05)
[2023-10-26] MEDS ORDERED: HYDROmorphone 0.5 MG/0.5 ML SYRINGE IVP STA (14:05)
--- NOTE | 2023-10-26 14:25 | ED ---
Abdominal Pain HPI - General Chief Complaint: Abdominal Pain Stated Complaint: abd pain Time Seen by Provider: 10/26/23 13:57 Source: patient, RN notes reviewed Mode of arrival: ambulatory Limitations: no limitations - History of Present Illness Initial Comments: Patient is a 53-year-old female presenting to the ER with a chief complaint of abdominal pain. Patient states it started earlier today. Patient does report she is a history of IBS and recently underwent an EGD and colonoscopy by Dr. Peñaloza. She describes it as a constant sharp mid abdominal pain. Patient states that she has been having bowel movements. She denies any nausea or vomiting but does report that she has not been eating as much. Patient denies any melena or bright red blood per stool. Denies any chest pain, shortness of breath, fevers, chills, night sweats, peripheral edema or urinary symptoms. - Related Data Home Medications Medication Instructions Recorded Confirmed Ibuprofen [Motrin] 800 mg PO DAILY PRN 04/21/18 09/07/23 Cimetidine [Tagamet] 300 mg PO DAILY 09/05/23 09/07/23 Previous Rx's Medication Instructions Recorded Docusate [Colace] 100 mg PO BID #20 capsule 04/23/18 Allergies Allergy/AdvReac Type Severity Reaction Status Date / Time No Known Allergies Allergy Verified 10/26/23 13:47 Review of Systems ROS Statement: Those systems with pertinent positive or pertinent negative responses have been documented in the HPI. ROS Other: All systems not noted in ROS Statement are negative. Past Medical History Past Medical History: COPD, GERD/Reflux Additional Past Medical History / Comment(s): IBS. UNEXPLAINED WT GAIN History of Any Multi-Drug Resistant Organisms: None Reported Past Surgical History: Cholecystectomy Past Anesthesia/Blood Transfusion Reactions: No Reported Reaction Additional Past Anesthesia/Blood Transfusion Reaction / Comment(s): [place] teeth extraction Past Psychological History: No Psychological Hx Reported Smoking Status: Current every day smoker Past Alcohol Use History: None Reported Past Drug Use History: None Reported - Past Family History Mother Additional Family Medical History / Comment(s): EMPHYSEMA Father Family Medical History: Cancer Additional Family Medical History / Comment(s): Cancer originated in lungs. General Exam Limitations: no limitations General appearance: alert, in no apparent distress Head exam: Present: atraumatic, normocephalic, normal inspection Eye exam: Present: normal appearance, PERRL, EOMI. Absent: scleral icterus, conjunctival injection, periorbital swelling Respiratory exam: Present: normal lung sounds bilaterally. Absent: respiratory distress, wheezes, rales, rhonchi, stridor Cardiovascular Exam: Present: regular rate, normal rhythm, normal heart sounds. Absent: systolic murmur, diastolic murmur, rubs, gallop, clicks GI/Abdominal exam: Present: soft, tenderness (Generalized abdominal tenderness. Abdomen does seem mildly distended and guarding), normal bowel sounds. Absent: distended, guarding, rebound, rigid Neurological exam: Present: alert, oriented X3, CN II-XII intact Psychiatric exam: Present: normal affect, normal mood Skin exam: Present: warm, intact, normal color, diaphoretic. Absent: rash Course Vital Signs 10/26/23 10/26/23 10/26/23 13:44 14:30 14:50 Temperature 97.8 F 98.1 F Pulse Rate 73 74 73 Respiratory 20 18 18 Rate Blood Pressure 124/83 134/86 132/85 O2 Sat by Pulse 95 97 97 Oximetry 10/26/23 10/26/23 16:00 16:54 Temperature 98.2 F 98.1 F Pulse Rate 78 74 Respiratory 18 18 Rate Blood Pressure 125/85 131/77 O2 Sat by Pulse 100 97 Oximetry Medical Decision Making - Medical Decision Making Was pt. sent in by a medical professional or institution (, [facility], [employer], urgent care, hospital, or assisted...) When possible be specific @ -No Did you speak to anyone other than the patient for history (EMS, parent, family, police, friend...)? What history was obtained from this source @ -No Did you review nursing and triage notes (agree or disagree)? Why? @ -I reviewed and agree with nursing and triage notes Were old charts reviewed (outside hosp., previous admission, EMS record, old EKG, old radiological studies, urgent care reports/EKG's, assisted records)? Report findings @ -Yes I reviewed patient's colonoscopy and EGD by Dr. Peñaloza on 09/07/23. Patien t had mild gastritis and colon polyps. Differential Diagnosis (chest pain, altered mental status, abdominal pain women, abdominal pain men, vaginal bleeding, weakness, fever, dyspnea, syncope, headache, dizziness, GI bleed, back pain, seizure, CVA, palpatations, mental health, musculoskeletal)? @ -Differential Abdominal Pain Women: Appendicitis, Cholecystitis, diverticulosis, ischemic bowel, pancreatitis, hepatitis, UTI, gastroenteritis, AAA, incarcerated hernia, bowel obstruction, constipation, inflammatory bowel, hepatitis, peptic ulcer disease, splenic infarction, perforated viscus, vulvitis, ovarian torsion, PID, kidney stone, placenta abruption, this is not meant to be an all-inclusive list EKG interpreted by me (3pts min.). @ -As above X-rays interpreted by me (1pt min.). @ -None done CT interpreted by me (1pt min.). @ -CT abdomen pelvis interpreted by me shows no acute process. U/S interpreted by me (1pt. min.). @ -None done What testing was considered but not performed or refused? (CT, X-rays, U/S, labs)? Why? @ -None What meds were considered but not given or refused? Why? @ -None Did you discuss the management of the patient with other professionals (professionals i.e. , PA, [employer], lab, RT, psych nurse, criminal justice social worker, nicker, teacher, parachute/combatant diver officer, case assistant)? Give summary @ -No Was smoking cessation discussed for >3mins.? @ -No Was critical care preformed (if so, how long)? @ -No Were there social determinants of health that impacted care today? How? (Homelessness, low income, unemployed, alcoholism, drug addiction, transportation, low edu. Level, literacy, decrease access to med. care, [facility], rehab)? @ -No Was there de-escalation of care discussed even if they declined (Discuss DNR or withdrawal of care, Hospice)? DNR status @ -No What co-morbidities impacted this encounter? (DM, HTN, Smoking, COPD, CAD, Cancer, CVA, ARF, Chemo, Hep., AIDS, mental health diagnosis, sleep apnea, morbid obesity)? @ -Obese, COPD, IBS Was patient admitted / discharged? Hospital course, mention meds given and route, prescriptions, significant lab abnormalities, going to OR and other pertinent info. @ -Discharge. Patient is a 53-year-old female presented to the ER with a chief complaint of generalized abdominal pain and fatigue. Vital stable. History and physical exam were completed. Patient without signs of acute distress. Lab obtained in the ER were unremarkable. COVID-19, RSV, influenza negative. EKG showed normal sinus rhythm with no acute evidence of infarct or ischemia. CT abdomen pelvis showed no acute process. I discussed imaging and lab results with patient. All questions answered. Patient did receive 1 L of IV fluids, Dilaudid, Zofran with improvement of her symptoms. Advised patient to follow-up with GI. Return parameters were discussed. Patient will be discharged in stable condition with follow-up to PCP/GI. Patient expressed understanding and agreement with care plan. Undiagnosed new problem with uncertain prognosis? @ -No Drug Therapy requiring intensive monitoring for toxicity (Heparin, Nitro, Insulin, Cardizem)? @ -No Were any procedures done? @ -No Diagnosis/symptom? @ -Abdominal pain Acute, or Chronic, or Acute on Chronic? @ -Acute Uncomplicated (without systemic symptoms) or Complicated (systemic symptoms)? @ -Uncomplicated Side effects of treatment? @ -No Exacerbation, Progression, or Severe Exacerbation? @ -No Poses a threat to life or bodily function? How? (Chest pain, [place], NH, pneumonia, PE, COPD, DKA, ARF, appy, cholecystitis, CVA, Diverticulitis, Homicidal, Suicidal, threat to staff... and all critical care pts) @ -No - Lab Data Result diagrams: 10/26/23 14:10 10/26/23 14:10 Lab Results 10/26/23 10/26/23 10/26/23 Range/Units 14:10 14:10 14:10 WBC 9.9 (3.8-10.6) k/uL RBC 4.22 (3.80-5.40) m/uL Hgb 13.9 (11.4-16.0) gm/dL Hct 40.0 (34.0-46.0) % MCV 94.9 (80.0-100.0) fL MCH 33.0 (25.0-35.0) pg MCHC 34.7 (31.0-37.0) g/dL RDW 12.4 (11.5-15.5) % Plt Count 264 (150-450) k/uL MPV 8.6 Sodium 138 (137-145) mmol/L Potassium 4.4 (3.5-5.1) mmol/L Chloride 109 H (98-107) mmol/L Carbon Dioxide 22 (22-30) mmol/L Anion Gap 7 mmol/L BUN 18 H (7-17) mg/dL Creatinine 0.54 (0.52-1.04) mg/dL Est GFR (CKD-EPI)AfAm >90 (>60 ml/min/1.73 sqM) Est GFR (CKD-EPI)NonAf >90 (>60 ml/min/1.73 sqM) Glucose 115 H (74-99) mg/dL Plasma Lactic Acid Laz 1.0 (0.7-2.0) mmol/L Calcium 9.2 (8.4-10.2) mg/dL Total Bilirubin 0.6 (0.2-1.3) mg/dL AST 39 H (14-36) U/L ALT 66 H (4-34) U/L Alkaline Phosphatase 110 (38-126) U/L Troponin I (0.000-0.034) ng/mL Total Protein 8.0 (6.3-8.2) g/dL Albumin 4.2 (3.5-5.0) g/dL Amylase 48 (30-110) U/L Lipase 85 (23-300) U/L Urine Color Urine Appearance (Clear) Urine pH (5.0-8.0) Ur Specific Brooks (1.001-1.035) Urine Protein (Negative) Urine Glucose (UA) (Negative) Urine Ketones (Negative) Urine Blood (Negative) Urine Nitrite (Negative) Urine Bilirubin (Negative) Urine Urobilinogen (<2.0) mg/dL Ur Leukocyte Esterase (Negative) Influenza Type A (PCR) (Not Detectd) Influenza Type B (PCR) (Not Detectd) RSV (PCR) (Not Detectd) SARS-CoV-2 (PCR) (Not Detectd) 10/26/23 10/26/23 10/26/23 Range/Units 14:10 14:10 16:13 WBC (3.8-10.6) k/uL RBC (3.80-5.40) m/uL Hgb (11.4-16.0) gm/dL Hct (34.0-46.0) % MCV (80.0-100.0) fL MCH (25.0-35.0) pg MCHC (31.0-37.0) g/dL RDW (11.5-15.5) % Plt Count (150-450) k/uL MPV Sodium (137-145) mmol/L Potassium (3.5-5.1) mmol/L Chloride (98-107) mmol/L Carbon Dioxide (22-30) mmol/L Anion Gap mmol/L BUN (7-17) mg/dL Creatinine (0.52-1.04) mg/dL Est GFR (CKD-EPI)AfAm (>60 ml/min/1.73 sqM) Est GFR (CKD-EPI)NonAf (>60 ml/min/1.73 sqM) Glucose (74-99) mg/dL Plasma Lactic Acid Laz (0.7-2.0) mmol/L Calcium (8.4-10.2) mg/dL Total Bilirubin (0.2-1.3) mg/dL AST (14-36) U/L ALT (4-34) U/L Alkaline Phosphatase (38-126) U/L Troponin I <0.012 (0.000-0.034) ng/mL Total Protein (6.3-8.2) g/dL Albumin (3.5-5.0) g/dL Amylase (30-110) U/L Lipase (23-300) U/L Urine Color Yellow Urine Appearance Clear (Clear) Urine pH 6.0 (5.0-8.0) Ur Specific Brooks 1.026 (1.001-1.035) Urine Protein Negative (Negative) Urine Glucose (UA) Negative (Negative) Urine Ketones Negative (Negative) Urine Blood Negative (Negative) Urine Nitrite Negative (Negative) Urine Bilirubin Negative (Negative) Urine Urobilinogen 2.0 (<2.0) mg/dL Ur Leukocyte Esterase Negative (Negative) Influenza Type A (PCR) Not Detected (Not Detectd) Influenza Type B (PCR) Not Detected (Not Detectd) RSV (PCR) Not Detected (Not Detectd) SARS-CoV-2 (PCR) Not Detected (Not Detectd) - EKG Data -: EKG Interpreted by [facility] EKG Comments: EKG taken at 16: 12 shows a normal sinus rhythm with no acute ST segment or T wave abnormalities. Ventricular rate 67, MN interval 180, QRS duration 95, QT/QTc 455/470. - Radiology Data Radiology results: report reviewed, image reviewed Disposition Clinical Impression: Abdominal pain Disposition: HOME SELF-CARE Condition: Stable Instructions (If sedation given, give patient instructions): Abdominal Pain (ED) Additional Instructions: Please follow-up with GIDr. Peñaloza. Return to ER for any new or worsening symptoms. Is patient prescribed a controlled substance at d/c from ED?: No Referrals: Edgard Gunn MD [Primary Care Provider] - 1-2 days Elvi Peñaloza MD [STAFF PHYSICIAN] - 1-2 days Time of Disposition: 16:46
[2023-10-26 14:29] LABS: Appearance,Urine Clear (Clear); Bilirubin,Urine Negative (Negative); Blood,Urine Negative (Negative); Color,Urine Yellow; Glucose,Urine (UA) Negative (Negative); Ketones,Urine Negative (Negative); Leukocyte Esterase,Urine Negative (Negative); Nitrite,Urine Negative (Negative); Protein,Urine Negative (Negative); Specific Gravity,Urine 1.026 (1.001-1.035)
[2023-10-26 14:31] LABS: HGB 13.9 gm/dL (11.4-16.0); MCHC 34.7 g/dL (31.0-37.0); MCV 94.9 fL (80.0-100.0); Mean Platelet Volume 8.6; Platelet Count 264 k/uL (150-450); RBC 4.22 m/uL (3.80-5.40); RDW 12.4 % (11.5-15.5); WBC 9.9 k/uL (3.8-10.6)
[2023-10-26 14:41] LABS: ALT 66 U/L (4-34); African American GFR (CKD) >90 (>60 ml/min/1.73 sqM); Albumin 4.2 g/dL (3.5-5.0); Amylase 48 U/L (30-110); Anion Gap 7 mmol/L; Blood Urea Nitrogen 18 mg/dL (7-17); Calcium 9.2 mg/dL (8.4-10.2); Carbon Dioxide 22 mmol/L (22-30); Chloride 109 mmol/L (98-107); Glucose 115 mg/dL (74-99); Lipase 85 U/L (23-300); Non-African American GFR(CKD) >90 (>60 ml/min/1.73 sqM); Sodium 138 mmol/L (137-145); Total Bilirubin 0.6 mg/dL (0.2-1.3)
[2023-10-26 14:48] LABS: AST 39 U/L (14-36); Alkaline Phosphatase 110 U/L (38-126); Potassium 4.4 mmol/L (3.5-5.1)
[2023-10-26 14:52] VITALS: RESP 18
--- NOTE | 2023-10-26 15:43 | CT ---
EXAMINATION TYPE: CT abdomen pelvis w con DATE OF EXAM: 10/26/2023 COMPARISON: None HISTORY: Abdominal pain, increased fatigue CT DLP: 1600.6 mGycm Automated exposure control for dose reduction was used. TECHNIQUE: Helical acquisition of images was performed from the lung bases through the pelvis. CONTRAST: Performed without Oral Contrast and with IV Contrast, patient injected with 100 mL of Isovue 300. FINDINGS: There is mild dependent atelectasis in the lung bases otherwise the lungs are clear. There is surgical absence of gallbladder and no biliary ductal dilatation. There is no focal mass or organomegaly involving the liver, pancreas, spleen or adrenal glands. There is no solid renal mass or hydronephrosis. The caliber of the abdominal aorta is normal and ther e is no retroperitoneal adenopathy. The bowel loops are normal in caliber and there is no dilatation or obstruction. No inflammatory khan ges are identified in the bowel wall or mesentery and there is no free intraperitoneal air-fluid. There is no pelvic mass, free fluid, abscess or adenopathy. No focal osseous lesions are seen. IMPRESSION: No significant abnormality seen.
[2023-10-26 17:18] VITALS: BP 131/77; PULSE 74; TEMP 98.1
== END 2023-10-26 16:58 | disposition home or self-care (01) ==
LOC: EC 13:02
DX: R10.84 Generalized abdominal pain (principal); J44.9 Chronic obstructive pulmonary disease, unspecified; F17.200 Nicotine dependence, unspecified, uncomplicated; Z20.822 Contact with and (suspected) exposure to COVID-19
CPT/HCPCS: 36415; 93005; 80053; 82150; 83605; 83690; 84484; 85027; 81003; 87636; 74177; 99285; 96374; 96375; 96361; J2405; J1170; Q9967

== ENCOUNTER → 2023-11-23 | Outpatient (CLI) | payer OTHER ==
--- NOTE | 2023-11-24 13:30 | CA ---
Transthoracic Echo Report Name: Gris Gold Age: 53 Gender: F : 1970 Exam Date: 11/23/2023 07:34 Exam Location: [facility] Ht (in): 60 Wt (lb): 180 Ordering Physician: Edgard Gunn MD Attending/Referring Phys: Storage Receipt Poster George Flores RDCS Procedure CPT: Indications: R06.02 SHORTNESS OF BREATH R07.9 CHEST PAIN, UNSPE Cardiac Hx: Technical Quality: Contrast 1: Total Dose (mL): Contrast 2: Total Dose (mL): MEASUREMENTS (Male / Female) Normal Values 2D ECHO LV Diastolic Diameter PLAX 4.2 cm 4.2 - 5.9 / 3.9 - 5.3 cm LV Systolic Diameter PLAX 0.9 cm IVS Diastolic Thickness 0.9 cm 0.6 - 1.0 / 0.6 - 0.9 cm LVPW Diastolic Thickness 0.7 cm 0.6 - 1.0 / 0.6 - 0.9 cm LV Relative Wall Thickness 0.4 LVOT Diameter 1.8 cm Aortic Root Diameter 3.4 cm LA Systolic Diameter LX 3.9 cm 3.0 - 4.0 / 2.7 - 3.8 cm LV Diastolic Volume MOD BP 45.0 cm??? 67 - 155 / 56 - 104 cm??? LV Systolic Volume MOD BP 9.0 cm??? - / 19 - 49 cm??? LV Ejection Fraction MOD BP 80.0 % >= 55 % LV Cardiac Index MOD BP 1480.2 cm???/min???m??? LV Diastolic Volume MOD 4C 43.6 cm??? LV Systolic Volume MOD 4C 11.7 cm??? LV Ejection Fraction MOD 4C 73.1 % LV Cardiac Index MOD 4C 1310.1 cm???/min???m??? LV Diastolic Length 4C 7.1 cm LV Systolic Length 4C 4.7 cm LV Diastolic Volume MOD 2C 44.4 cm??? LV Systolic Volume MOD 2C 6.3 cm??? LV Ejection Fraction MOD 2C 85.8 % LV Cardiac Index MOD 2C 1565.6 cm???/min???m??? LV Diastolic Length 2C 6.6 cm LV Systolic Length 2C 4.1 cm LA Volume 27.5 cm??? 18 - 58 / 22 - 52 cm??? LA Volume Index 14.5 cm???/m??? 16 - 28 cm???/m??? DOPPLER AV Peak Velocity 147.4 cm/s AV Peak Gradient 8.7 mmHg AV Mean Velocity 101.5 cm/s AV Mean Gradient 4.5 mmHg AV Velocity Time Integral 29.5 cm LVOT Peak Velocity 127.4 cm/s LVOT Peak Gradient 6.5 mmHg LVOT Velocity Time Integral 25.2 cm LVOT Stroke Volume 60.7 cm??? LVOT Stroke Volume Index 34.0 ml/m??? LVOT Cardiac Index 2495.0 cm???/min???m??? AV Area Cont Eq vti 2.1 cm??? AV Area Cont Eq pk 2.1 cm??? MV Area PHT 3.0 cm??? Mitral E Point Velocity 67.0 cm/s Mitral A Point Velocity 77.1 cm/s Mitral E to A Ratio 0.9 MV Deceleration Time 254.1 ms PV Peak Velocity 86.1 cm/s PV Peak Gradient 3.0 mmHg FINDINGS Left Ventricle Left ventricular ejection fraction is estimated at 55-60 %. Normal left ventricular systolic function with no obvious regional wall motion abnormalities. Right Ventricle Normal right ventricular size and function. Right Atrium Normal right atrial size. Left Atrium Left atrial size at the upper limits of normal. Mitral Valve Mild mitral regurgitation. Aortic Valve Trileaflet aortic valve. Tricuspid Valve Trace tricuspid regurgitation. Pulmonic Valve No pulmonic regurgitation. Pericardium No pericardial effusion. Aorta Normal size aortic root. CONCLUSIONS Normal LV systolic function and so Previewed by: Dr. Tanner Rios MD (Electronically Signed) Final Date: 24 November 2023 13:29
--- NOTE | 2023-11-27 11:32 | HM ---
HOLTER MONITOR REPORT STUDY: 24-hour Holter. INDICATIONS: Shortness of breath, rule out cardiac arrhythmia. FINDINGS: Underlying rhythm is sinus with an average heart rate of 81 beats per minute. Heart rate varies from 130 beats per minute to 57 beats per minute. Rare PVCs and PACs are noted. There were no episodes of sustained ventricular or supraventricular tachyarrhythmias. There are no episodes of more than 2-second pauses. CONCLUSION: This 24-hour Holter reveals sinus rhythm without significant tachy and bradyarrhythmias. MMODL / IJN: [id number] /
== END | disposition home or self-care (01) ==
LOC: RADECHMAIN 07:24
PROVIDERS: ATTEND Family Medicine
DX: R00.1 Bradycardia, unspecified (principal); R00.0 Tachycardia, unspecified; R06.02 Shortness of breath; R07.9 Chest pain, unspecified
CPT/HCPCS: 93225; 93226; 93306

== ENCOUNTER 2024-03-21 07:20 | Emergency (ER) | payer OTHER ==
--- NOTE | 2024-03-21 07:54 | ED ---
General Adult HPI - General Chief complaint: Nausea/Vomiting/Diarrhea Stated complaint: Vomiting,abd pain Time Seen by Provider: 03/21/24 07:26 Source: patient, RN notes reviewed, old records reviewed Mode of arrival: ambulatory Limitations: no limitations - History of Present Illness Initial comments: This is a 53-year-old female who presents to the emergency department stating she has had diarrhea and vomiting for almost a week now. Patient states she just does not feel good. Patient states she not been urinating at all. Patient denies any specific point tenderness. Patient states that is diffuse tenderness. Patient denies any dysuria hematuria urinary frequency. Patient has any back pain. Patient [place] chest pain difficulty breathing or shortness of breath. Patient denies any fever or chills. - Related Data Home Medications Medication Instructions Recorded Confirmed Ibuprofen [Motrin] 800 mg PO TID PRN 04/21/18 03/21/24 Albuterol Inhaler [Ventolin Hfa 1 - 2 puff INHALATION RT-Q6H PRN 03/21/24 03/21/24 Inhaler] Budesonide-Formot 160-4.5 Mcg 2 puff INHALATION RT-BID 03/21/24 03/21/24 [Symbicort 160-4.5 Mcg Inhaler] Diphenoxylate HCl/Atropine 1 - 2 tab PO QID PRN 03/21/24 03/21/24 [Lomotil 2.5-0.025 mg Tablet] Fexofenadine HCl [Slime Allergy] 180 mg PO DAILY 03/21/24 03/21/24 Meloxicam [Mobic] 7.5 mg PO DAILY 03/21/24 03/21/24 Ondansetron [Zofran] 4 mg PO TID PRN 03/21/24 03/21/24 Pantoprazole [Protonix] 40 mg PO DAILY 03/21/24 03/21/24 Semaglutide [Wegovy] 0.25 mg SQ MENDOSA 03/21/24 03/21/24 Venlafaxine HCl ER [Effexor Xr] 37.5 mg PO DAILY 03/21/24 03/21/24 Previous Rx's Medication Instructions Recorded Docusate [Colace] 100 mg PO BID #20 capsule 04/23/18 Allergies Allergy/AdvReac Type Severity Reaction Status Date / Time No Known Allergies Allergy Verified 03/21/24 09:44 Review of Systems ROS Statement: Those systems with pertinent positive or pertinent negative responses have been documented in the HPI. ROS Other: All systems not noted in ROS Statement are negative. Past Medical History Past Medical History: COPD, GERD/Reflux Additional Past Medical History / Comment(s): IBS. UNEXPLAINED WT GAIN History of Any Multi-Drug Resistant Organisms: None Reported Past Surgical History: Cholecystectomy Past Anesthesia/Blood Transfusion Reactions: No Reported Reaction Additional Past Anesthesia/Blood Transfusion Reaction / Comment(s): [place] teeth extraction Past Psychological History: No Psychological Hx Reported Smoking Status: Current every day smoker Past Alcohol Use History: None Reported Past Drug Use History: None Reported - Past Family History Mother Additional Family Medical History / Comment(s): EMPHYSEMA Father Family Medical History: Cancer Additional Family Medical History / Comment(s): Cancer originated in lungs. General Exam - General Exam Comments Initial Comments: GENERAL: Patient is well-developed and well-nourished. Patient is nontoxic and well- hydrated and is in mild distress. ENT: Neck is soft and supple. No significant lymphadenopathy is noted. Oropharynx is clear. Moist mucous membranes. Neck has full range of motion without eliciting any pain. EYES: The sclera were anicteric and conjunctiva were pink and moist. Extraocular movements were intact and pupils were equal round and reactive to light. Eyelids were unremarkable. PULMONARY: Unlabored respirations. Good breath sounds bilaterally. No audible rales rhonchi or wheezing was noted. CARDIOVASCULAR: There is a regular rate and rhythm without any murmurs gallops or rubs. ABDOMEN: Soft and nontender with normal bowel sounds. SKIN: Skin is clear with no lesions or rashes and otherwise unremarkable. NEUROLOGIC: Patient is alert and oriented x3. Cranial nerves II through XII are grossly intact. Motor and sensory are also intact. Normal speech, volume and content. Symmetrical smile. MUSCULOSKELETAL: Normal extremities with adequate strength and full range of motion. No lower extremity swelling or edema. No calf tenderness. LYMPHATICS: No significant lymphadenopathy is noted PSYCHIATRIC: Normal psychiatric evaluation. Limitations: no limitations Course Vital Signs 03/21/24 03/21/24 03/21/24 07:23 07:57 09:30 Temperature 97.8 F 98.1 F Pulse Rate 95 Respiratory 20 Rate Blood Pressure 125/78 100/74 149/94 O2 Sat by Pulse 95 Oximetry Medical Decision Making - Medical Decision Making Was pt. sent in by a medical professional or institution (, [facility], [facility], urgent care, hospital, or residential...) When possible be specific @ -No Did you speak to anyone other than the patient for history (EMS, parent, family, police, friend...)? What history was obtained from this source @ -No Did you review nursing and triage notes (agree or disagree)? Why? @ -I reviewed and agree with nursing and triage notes Were old charts reviewed (outside hosp., previous admission, EMS record, old EKG, old radiological studies, urgent care reports/EKG's, residential records)? Report findings @ -No old charts were reviewed Differential Diagnosis (chest pain, altered mental status, abdominal pain women, abdominal pain men, vaginal bleeding, weakness, fever, dyspnea, syncope, headache, dizziness, GI bleed, back pain, seizure, CVA, palpatations, mental health, musculoskeletal)? @ -Differential Abdominal Pain Women: Appendicitis, Cholecystitis, diverticulosis, ischemic bowel, pancreatitis, hepatitis, UTI, gastroenteritis, AAA, incarcerated hernia, bowel obstruction, constipation, inflammatory bowel, hepatitis, peptic ulcer disease, splenic infarction, perforated viscus, vulvitis, ovarian torsion, PID, kidney stone, placenta abruption, this is not meant to be an all-inclusive list EKG interpreted by me (3pts min.). @ -As above X-rays interpreted by me (1pt min.). @ -None done CT interpreted by me (1pt min.). @ -None done U/S interpreted by me (1pt. min.). @ -None done What testing was considered but not performed or refused? (CT, X-rays, U/S, labs)? Why? @ -None What meds were considered but not given or refused? Why? @ -None Did you discuss the management of the patient with other professionals (professionals i.e. [facility]ARA Rowan, [facility], lab, RT, psych nurse, group social worker, eviction specialist, teacher, investigation officer, major case detective)? Give summary @ -No Was smoking cessation discussed for >3mins.? @ -No Was critical care preformed (if so, how long)? @ -No Were there social determinants of health that impacted care today? How? (Homelessness, low income, unemployed, alcoholism, drug addiction, transportation, low edu. Level, literacy, decrease access to med. care, intermediate, rehab)? @ -No Was there de-escalation of care discussed even if they declined (Discuss DNR or withdrawal of care, Hospice)? DNR status @ -No What co-morbidities impacted this encounter? (DM, HTN, Smoking, COPD, CAD, Cancer, CVA, ARF, Chemo, Hep., AIDS, mental health diagnosis, sleep apnea, morbid obesity)? @ -None Was patient admitted / discharged? Hospital course, mention meds given and route, prescriptions, significant lab abnormalities, going to OR and other pertinent info. @ -Patient's lab work came back reasonably normal. Patient had been given Zofran and Lomotil in the emergency department with bag of IV fluids. Patient was feeling considerably better and had no more vomiting or diarrhea in the [facility] department. Patient will be sent home with a starter pack. Undiagnosed new problem with uncertain prognosis? @ -No Drug Therapy requiring intensive monitoring for toxicity (Heparin, Nitro, Insu suraj, Cardizem)? @ -No Were any procedures done? @ -No Diagnosis/symptom? @ -Gastroenteritis Acute, or Chronic, or Acute on Chronic? @ -Acute Uncomplicated (without systemic symptoms) or Complicated (systemic symptoms)? @ -Uncomplicated Side effects of treatment? @ -No Exacerbation, Progression, or Severe Exacerbation? @ -No Poses a threat to life or bodily function? How? (Chest pain, [place], [place], pneumonia, PE, COPD, DKA, ARF, appy, cholecystitis, CVA, Diverticulitis, Homicidal, Suicidal, threat to staff... and all critical care pts) @ -No - Lab Data Result diagrams: 03/21/24 07:48 03/21/24 07:48 Lab Results 03/21/24 03/21/24 03/21/24 Range/Units 07:48 07:48 07:48 WBC 12.0 H (3.8-10.6) k/uL RBC 5.03 (3.80-5.40) m/uL Hgb 16.0 (11.4-16.0) gm/dL Hct 47.1 H (34.0-46.0) % MCV 93.7 (80.0-100.0) fL MCH 31.8 (25.0-35.0) pg MCHC 33.9 (31.0-37.0) g/dL RDW 12.7 (11.5-15.5) % Plt Count 283 (150-450) k/uL MPV 9.6 Neutrophils % 75 % Lymphocytes % 16 % Monocytes % 6 % Eosinophils % 1 % Basophils % 0 % Neutrophils # 9.0 H (1.3-7.7) k/uL Lymphocytes # 1.9 (1.0-4.8) k/uL Monocytes # 0.8 (0-1.0) k/uL Eosinophils # 0.2 (0-0.7) k/uL Basophils # 0.0 (0-0.2) k/uL Sodium 135 L (137-145) mmol/L Potassium 4.0 (3.5-5.1) mmol/L Chloride 105 (98-107) mmol/L Carbon Dioxide 20 L (22-30) mmol/L Anion Gap 10 mmol/L BUN 22 H (7-17) mg/dL Creatinine 0.80 (0.52-1.04) mg/dL Est GFR (CKD-EPI)AfAm >90 (>60 ml/min/1.73 sqM) Est GFR (CKD-EPI)NonAf 85 (>60 ml/min/1.73 sqM) Glucose 148 H (74-99) mg/dL Plasma Lactic Acid Laz 0.9 (0.7-2.0) mmol/L Calcium 9.4 (8.4-10.2) mg/dL Total Bilirubin 1.2 (0.2-1.3) mg/dL AST 90 H (14-36) U/L ALT 125 H (4-34) U/L Alkaline Phosphatase 137 H (38-126) U/L Total Protein 8.1 (6.3-8.2) g/dL Albumin 4.5 (3.5-5.0) g/dL Amylase 52 (30-110) U/L Lipase 318 H (23-300) U/L Urine Color Urine Appearance (Clear) Urine pH (5.0-8.0) Ur Specific [place] (1.001-1.035) Urine Protein (Negative) Urine Glucose (UA) (Negative) Urine Ketones (Negative) Urine Blood (Negative) Urine Nitrite (Negative) Urine Bilirubin (Negative) Urine Urobilinogen (<2.0) mg/dL Ur Leukocyte Esterase (Negative) Urine RBC (0-5) /hpf Urine WBC (0-5) /hpf Ur Squamous Epith Cells (0-4) /hpf Hyaline Casts (0-2) /lpf Urine Mucus (None) /hpf 03/21/24 Range/Units 08:00 WBC (3.8-10.6) k/uL RBC (3.80-5.40) m/uL Hgb (11.4-16.0) gm/dL Hct (34.0-46.0) % MCV (80.0-100.0) fL MCH (25.0-35.0) pg MCHC (31.0-37.0) g/dL RDW (11.5-15.5) % Plt Count (150-450) k/uL MPV Neutrophils % % Lymphocytes % % Monocytes % % Eosinophils % % Basophils % % Neutrophils # (1.3-7.7) k/uL Lymphocytes # (1.0-4.8) k/uL Monocytes # (0-1.0) k/uL Eosinophils # (0-0.7) k/uL Basophils # (0-0.2) k/uL Sodium (137-145) mmol/L Potassium (3.5-5.1) mmol/L Chloride (98-107) mmol/L Carbon Dioxide (22-30) mmol/L Anion Gap mmol/L BUN (7-17) mg/dL Creatinine (0.52-1.04) mg/dL Est GFR (CKD-EPI)AfAm (>60 ml/min/1.73 sqM) Est GFR (CKD-EPI)NonAf (>60 ml/min/1.73 sqM) Glucose (74-99) mg/dL Plasma Lactic Acid Laz (0.7-2.0) mmol/L Calcium (8.4-10.2) mg/dL Total Bilirubin (0.2-1.3) mg/dL AST (14-36) U/L ALT (4-34) U/L Alkaline Phosphatase (38-126) U/L Total Protein (6.3-8.2) g/dL Albumin (3.5-5.0) g/dL Amylase (30-110) U/L Lipase (23-300) U/L Urine Color Yellow Urine Appearance Cloudy H (Clear) Urine pH 6.5 (5.0-8.0) Ur Specific [place] 1.022 (1.001-1.035) Urine Protein Trace H (Negative) Urine Glucose (UA) Negative (Negative) Urine Ketones Negative (Negative) Urine Blood Negative (Negative) Urine Nitrite Negative (Negative) Urine Bilirubin 1+ H (Negative) Urine Urobilinogen 6.0 (<2.0) mg/dL Ur Leukocyte Esterase Small H (Negative) Urine RBC 1 (0-5) /hpf Urine WBC 3 (0-5) /hpf Ur Squamous Epith Cells 7 H (0-4) /hpf Hyaline Casts 1 (0-2) /lpf Urine Mucus Rare H (None) /hpf Disposition Clinical Impression: Gastroenteritis Disposition: HOME SELF-CARE Condition: Good Instructions (If sedation given, give patient instructions): Gastroenteritis (ED) Is patient prescribed a controlled substance at d/c from ED?: No Referrals: Edgard Gunn MD [Primary Care Provider] - 1-2 days Time of Disposition: 11:00
[2024-03-21] MEDS: DIPHENOX-ATROP 2.5-0.025 MG 1 EACH TAB PO STA (08:21)
[2024-03-21] MEDS: SODIUM CHLORIDE 0.9% 2,000 ML IV ONE (08:22)
[2024-03-21] MEDS: ONDANSETRON 4 MG/2 ML VIAL IVP STA (08:22)
[2024-03-21 08:30] LABS: Basophils % (A) 0 %; Eosinophils # (A) 0.2 k/uL (0-0.7); Eosinophils % (A) 1 %; HCT 47.1 % (34.0-46.0); Lymphocytes # (A) 1.9 k/uL (1.0-4.8); Lymphocytes % (A) 16 %; MCH 31.8 pg (25.0-35.0); MCHC 33.9 g/dL (31.0-37.0); MCV 93.7 fL (80.0-100.0); Mean Platelet Volume 9.6; Monocytes # (A) 0.8 k/uL (0-1.0); Monocytes % (A) 6 %; Neutrophils % (A) 75 %; Platelet Count 283 k/uL (150-450); RBC 5.03 m/uL (3.80-5.40); RDW 12.7 % (11.5-15.5)
[2024-03-21 08:50] LABS: ALT 125 U/L (4-34); AST 90 U/L (14-36); African American GFR (CKD) >90 (>60 ml/min/1.73 sqM); Albumin 4.5 g/dL (3.5-5.0); Alkaline Phosphatase 137 U/L (38-126); Amylase 52 U/L (30-110); Anion Gap 10 mmol/L; Blood Urea Nitrogen 22 mg/dL (7-17); Calcium 9.4 mg/dL (8.4-10.2); Carbon Dioxide 20 mmol/L (22-30); Chloride 105 mmol/L (98-107); Glucose 148 mg/dL (74-99); Lipase 318 U/L (23-300); Non-African American GFR(CKD) 85 (>60 ml/min/1.73 sqM); Sodium 135 mmol/L (137-145); Total Bilirubin 1.2 mg/dL (0.2-1.3); Total Protein 8.1 g/dL (6.3-8.2)
[2024-03-21 09:17] LABS: Appearance,Urine Cloudy (Clear); Bilirubin,Urine 1+ (Negative); Blood,Urine Negative (Negative); Color,Urine Yellow; Glucose,Urine (UA) Negative (Negative); Hyaline Casts,Urine 1 /lpf (0-2); Ketones,Urine Negative (Negative); Leukocyte Esterase,Urine Small (Negative); Mucus,Urine Rare /hpf; Nitrite,Urine Negative (Negative); PH, Urine 6.5 (5.0-8.0); Protein,Urine Trace (Negative); RBC,Urine 1 /hpf (0-5); Specific Gravity,Urine 1.022 (1.001-1.035); Squamous Epithelial Cell,Urine 7 /hpf (0-4); WBC,Urine 3 /hpf (0-5)
[2024-03-21] MEDS: KETOROLAC 15 MG/ML 1 ML VIAL IVP STA (11:15)
[2024-03-21] MEDS: ONDANSETRON 4 MG ODT STARTER PACK 2 TAB BTL PO STA (11:16)
[2024-03-21] MEDS: DIPHENOX-ATROP STARTER PACK 8 TAB BTL PO STA (11:16)
[2024-03-21 11:24] VITALS: BP 123/85; PULSE 80; RESP 16; TEMP 98.4
== END 2024-03-21 11:24 | disposition home or self-care (01) ==
LOC: EC 07:20
DX: K52.9 Noninfective gastroenteritis and colitis, unspecified (principal); F17.200 Nicotine dependence, unspecified, uncomplicated; Z90.49 Acquired absence of other specified parts of digestive tract
CPT/HCPCS: 99284; 36415; 80053; 82150; 83605; 83690; 85025; 81001; 96374; 96375; 96361 ×3; J2405; J1885; S0119

== ENCOUNTER → 2024-03-25 | Outpatient (CLI) | payer OTHER ==
[2024-03-25 15:05] VITALS: BP 146/86; PULSE 64; RESP 16; TEMP 98
--- NOTE | 2024-03-25 15:30 | P.SLEEP ---
History of Present Illness H&P Date: 03/25/24 6-year-old morbidly obese female patient is presenting due to concerns of obstructive sleep apnea. The patient is feeling fatigued and tired during the day. Her current [place] score is at 13. She has also noted. She is a mouth breather. She wakes up with a dry mouth. She goes to bed early between 8 and 9 PM and wakes up 7:30 AM in the morning and she feels not refreshed. She wakes up tired and she has trouble paying attention with memory or concentration and she feels irritable during the day. Occasionally grinds her teeth. She also has had apneas at nighttime and occasional regurgitation of food material but she cannot taste in the mouth. No sleep paralysis. Hallucinations. No cataplexy. Weight gain over the years. Substance abuse. She has a history of chronic smoker and she smokes 1 pack of cigarettes a day. She drinks 2 cups of coffee in the morning. No alcoholism. No substance abuse. She prefers to sleep on her side. Her sleep is fragmented and she wakes up few times in the middle of the night. She also takes nap at around 1 PM and afternoon. 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 Body mass index is 39. Patient is currently on Wegovy and she has lost approximately 8 pounds. Review of Systems Constitutional: Reports daytime sleepiness, Reports fatigue, Reports weight gain Eyes: denies as per HPI, denies blurred vision, denies bulging eye, denies decreased vision, denies diplopia, denies discharge, denies dry eye, denies irritation, denies itching, denies pain, denies photophobia, denies loss of peripheral vision, denies loss of vision, denies tunnel vision/blind spots Ears: deny: decreased hearing, ear discharge, earache, tinnitus Ears, nose, mouth and throat: Reports as per HPI Breasts: absent: as per HPI, change in shape, gynecomastia, masses, nipple discharge, pain, skin changes, swelling Cardiovascular: Reports as per HPI Respiratory: Reports snoring Gastrointestinal: Reports as per HPI Genitourinary: Reports as per HPI Menstruation: Reports as per HPI Musculoskeletal: Reports as per HPI Musculoskeletal: absent: ankle pain, ankle stiffness, ankle swelling, as per HPI, elbow pain, elbow stiffness, elbow swelling, foot pain, foot stiffness, foot swelling, hand pain, hand stiffness, hand swelling, hip pain, hip stiffness, hip swelling, knee pain, knee stiffness, knee swelling, shoulder pain, shoulder stiffness, shoulder swelling, wrist pain, wrist stiffness, wrist swelling Integumentary: Reports as per HPI Neurological: Reports as per HPI Psychiatric: Reports confusion Endocrine: Reports fatigue Hematologic/Lymphatic: Reports as per HPI Allergic/Immunologic: Reports as per HPI Past Medical History Past Medical History: COPD, GERD/Reflux Additional Past Medical History / Comment(s): IBS. UNEXPLAINED WT GAIN History of Any Multi-Drug Resistant Organisms: None Reported Past Surgical History: Cholecystectomy Past Anesthesia/Blood Transfusion Reactions: No Reported Reaction Additional Past Anesthesia/Blood Transfusion Reaction / Comment(s): [place] teeth extraction Past Psychological History: No Psychological Hx Reported Smoking Status: Current every day smoker Past Alcohol Use History: None Reported Additional Past Alcohol Use History / Comment(s): SMOKES 1 PPD SINCE AGE 14. NI ALCOHOL PAST 9 MONTHS Past Drug Use History: None Reported - Past Family History Mother Additional Family Medical History / Comment(s): EMPHYSEMA Father Family Medical History: Cancer Additional Family Medical History / Comment(s): Cancer originated in lungs. Medications and Allergies Home Medications Medication Instructions Recorded Confirmed Type Ibuprofen [Motrin] See Rx Instructions .ROUTE 04/21/18 03/25/24 History .COMPLEX PRN Docusate [Colace] 100 mg PO BID #20 capsule 04/23/18 03/25/24 Rx Albuterol Inhaler [Ventolin Hfa 1 - 2 puff INHALATION RT-Q6H PRN 03/21/24 03/25/24 History Inhaler] Budesonide-Formot 160-4.5 Mcg 2 puff INHALATION RT-BID 03/21/24 03/25/24 History [Symbicort 160-4.5 Mcg Inhaler] Diphenoxylate HCl/Atropine 1 - 2 tab PO QID PRN 03/21/24 03/25/24 History [Lomotil 2.5-0.025 mg Tablet] Fexofenadine HCl [Slime Allergy] 180 mg PO DAILY 03/21/24 03/25/24 History Meloxicam [Mobic] 7.5 mg PO DAILY 03/21/24 03/21/24 History Ondansetron [Zofran] 4 mg PO TID PRN 03/21/24 03/25/24 History Pantoprazole [Protonix] 40 mg PO DAILY 03/21/24 03/25/24 History Semaglutide [Wegovy] 0.25 mg SQ MENDOSA 03/21/24 03/25/24 History Venlafaxine HCl ER [Effexor Xr] 37.5 mg PO DAILY 03/21/24 03/25/24 History Allergies Allergy/AdvReac Type Severity Reaction Status Date / Time No Known Allergies Allergy Verified 03/21/24 09:44 Physical Exam Vitals: Vital Signs Temp Pulse Resp BP Pulse Ox 03/25/24 15:04 98 F 64 16 146/86 96 Intake and Output 03/25/24 03/25/24 03/25/24 06:59 14:59 22:59 Other: Weight 90.265 kg Morbidly obese, body mass index of 39,, comfortable, not in acute respiratory distress. Head exam was generally normal. There was no scleral icterus or corneal arcus. Mucous membranes were moist. Neck was supple and without jugular venous distension, thyromegaly, or carotid bruits. Carotids were easily palpable bilaterally. There was no adenopathy. Mallampati class IV with significant crowding of the posterior pharynx. Lung sounds are diminished bilaterally otherwise clear. Cardiac exam revealed the PMI to be normally situated and sized. The rhythm was regular and no extrasystoles were noted during several minutes of auscultation. The first and second heart sounds were normal and physiologic splitting of the second heart sound was noted. There were no murmurs, rubs, clicks, or gallops. Abdominal exam revealed normal bowel sounds. The abdomen was soft, non-tender, and without masses, organomegaly, or appreciable enlargement of the abdominal aorta. Examination of the extremities revealed easily palpable radial, femoral and pedal pulses. There was no cyanosis, clubbing or edema. Examination of the skin revealed no evidence of significant rashes, suspicious appearing nevi or other concerning lesions. Neurologically, the patient is awake and alert and the patient does not have any focal neurological deficit. Cranial nerves are essentially intact. Assessment and Plan Plan: Chronic hypersomnia with an [place] score of 13, high clinical suspicion for obstructive sleep apnea. Loud snoring, Mallampati class IV with significant crowding of the posterior pharynx Obesity with a BMI of 39, currently on Wegovy was successful 8 pounds weight loss COPD Chronic smoker IBS Plan Proceed with screening polysomnography Encouraged weight loss maintain regular sleep schedule Optimize good sleep hygiene measures Will contact the patient back with results of the sleep study and offer various treatments accordingly. Sleep Note - Sleep Data ESS Total: 13 - Sleep Note Sleep Note: Temperature: 98 F Pulse Rate: 64 Respiratory Rate: 16 Blood Pressure: 146/86 SpO2: 96 Height: 5 ft Weight: 90.265 kg BMI: Neck Circumference: 15.5
== END ==
LOC: 3 N SLEEP 13:56
PROVIDERS: ATTEND Internal Medicine Critical Care Medicine
DX: G47.10 Hypersomnia, unspecified (principal); R06.83 Snoring; E66.9 Obesity, unspecified; J44.9 Chronic obstructive pulmonary disease, unspecified; F17.210 Nicotine dependence, cigarettes, uncomplicated; K58.9 Irritable bowel syndrome, unspecified; Z68.39 Body mass index [BMI] 39.0-39.9, adult; Z79.899 Other long term (current) drug therapy; Z79.51 Long term (current) use of inhaled steroids
CPT/HCPCS: 99211

== ENCOUNTER → 2024-03-25 | Outpatient (CLI) | payer OTHER ==
--- NOTE | 2024-03-26 14:32 | MM ---
Reason for Exam: Screening (asymptomatic). Last screening mammogram was performed 12 month(s) ago. Patient History: Menarche at age 11. First Full-Term at age 21. Postmenopausal. Risk Values: [place] 5 year model risk: 1.1%. NCI Lifetime model risk: 8.4%. Prior Study Comparison: 03/08/2023 Bilateral MG 3D screening mammo w/cad, [facility]. Tissue Density: There are scattered areas of fibroglandular density. Findings: Analyzed By CAD. Right breast: There is no suspicious group of microcalcifications or new suspicious mass. Left breast: There is no suspicious group of microcalcifications or new suspicious mass. Overall Assessment: Negative, BI-RAD 1 Management: Screening Mammogram of both breasts in [address] [facility] will attempt to contact patient to return for supplemental views and ultrasound if indicated. Patient should continue monthly self-breast exams. A clinical breast exam by your physician is recommended on an annual basis. This exam should not preclude additional follow-up of suspicious palpable abnormalities. Note on [place] scores and lifetime risk: 1. A [place] score greater than 3% is considered moderate risk. If this is the case, consider specialist referral to assess eligibility for a risk reducing agent. 2. If overall lifetime risk for the development of breast cancer is 20% or higher, the patient may qualify for future screening with alternating mammogram and breast MRI. Electronically signed and approved by: Thomas Alston DO
== END | disposition home or self-care (01) ==
LOC: RADMAMWWP 15:36
PROVIDERS: ATTEND Family Medicine
DX: Z12.31 Encounter for screening mammogram for malignant neoplasm of breast (principal); Z78.0 Asymptomatic menopausal state
CPT/HCPCS: 77063; 77067

== ENCOUNTER 2024-04-23 19:24 | Outpatient (CLI) | payer OTHER ==
--- NOTE | 2024-05-04 22:04 | P.PCN ---
Date of Procedure: 04/23/24 Operative Findings: Polysomnography report Date of services 04/23/2000 Pertinent history 53-year-old morbidly obese female patient is presenting due to concerns of obstructive sleep apnea. The patient is feeling fatigued and tired during the day. Her current [place] score is at 13. She has also noted. She is a mouth breather. She wakes up with a dry mouth. She goes to bed early between 8 and 9 PM and wakes up 7:30 AM in the morning and she feels not refreshed. She wakes up tired and she has trouble paying attention with memory or concentration and she feels irritable during the day. Occasionally grinds her teeth. She also has had apneas at nighttime and occasional regurgitation of food material but she cannot taste in the mouth. No sleep paralysis. Hallucinations. No cataplexy. Weight gain over the years. Substance abuse. She has a history of chronic smoker and she smokes 1 pack of cigarettes a day. She drinks 2 cups of coffee in the morning. No alcoholism. No substance abuse. She prefers to sleep on her side. Her sleep is fragmented and she wakes up few times in the m iddle of the night. She also takes nap at around 1 PM and afternoon. 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 Body mass index is 39. Patient is currently on Wegovy and she has lost approximately 8 pounds. Physical findings Weight is 199 pounds with a body mass index of 38.9 Technical description The patient was studied using a standard complex polysomnography protocol that included recording of the 2 EKG, Central, occipital and frontal EEG, right and left outer canthus EOG, submental EMG, right and left anterior tibialis EMG, respiratory airflow by thermocouple and or pressure/flow transducer, respiratory efforts by abdominal and thoracic PVDF belts, oxygen saturation by cable oximetry. Position by observation synchronized the PSG. Equipment used: [employer] App. Sleep architecture Total recording duration was 420.5 minutes. The total sleep time was around 29.5 minutes. The wake after sleep onset time was 32.5 minutes. Total sleep efficiency was 78.4%. Sleep latency was 58 minutes. The total arousal index was 17.8. The sleep architecture was characterized by 14% stage I, 74.7% stage II, 0.2% stage III, 11.2% REM sleep. Latest REM sleep was 156.5 minutes. Respiratory analysis There were a total of 69 obstructive events of which 2 were obstructive apneas, 0 mixed apneas and 60 several obstructive hypopneas. The resulting AHI was 11.2 consistent with mild obstructive sleep apnea. There was in addition 1 central apnea events with a central apnea index of 0.2. The respiratory arousal index was 5.6 Oxygenation analysis The baseline pulse ox while awake was 93%. Lowest pulse ox was recorded during REM sleep was 80% and the patient spent approximately 1 hours and 38 minutes of the sleep time below pulse ox of 89%. Sleep continuity summary The patient has a total of 98 arousals with an index of 17.8. The respiratory arousal index was 5.6 Cardiac summary The average heart rate was 83 with a minimum heart rate of 73 and a maximum heart rate of 90 Periodic movement events A total of 181. Rhythm with activity was recorded with an index of 33. Periodic limb movement with arousals were 1 with an index of 0.2 Assessment Obstructive sleep apnea, mild in severity with an AHI of 11.3 Nocturnal oxygen desaturation with a minimum pulse ox of 80% Chronic hypersomnia with an [place] score of 13 Loud snoring, Mallampati class IV with significant crowding of the posterior pharynx Obesity with a BMI of 39, currently on Wegovy was successful 8 pounds weight loss COPD Chronic smoker IBS Plan Patient has symptomatic obstructive sleep apnea which is essentially mild in nature. Recommend CPAP titration with subsequent CPAP therapy and as such the patient will be asked to come into the sleep center to undergo a CPAP titration. Encouraged weight loss maintain regular sleep schedule Optimize good sleep hygiene measures
== END 2024-04-24 05:26 | disposition home or self-care (01) ==
LOC: 3 N SLEEP 19:24
PROVIDERS: ATTEND Internal Medicine Critical Care Medicine
DX: G47.33 Obstructive sleep apnea (adult) (pediatric) (principal); G47.10 Hypersomnia, unspecified; E66.01 Morbid (severe) obesity due to excess calories; J44.9 Chronic obstructive pulmonary disease, unspecified; K58.9 Irritable bowel syndrome, unspecified; F17.200 Nicotine dependence, unspecified, uncomplicated; Z68.39 Body mass index [BMI] 39.0-39.9, adult; Z79.899 Other long term (current) drug therapy
CPT/HCPCS: 95810

== ENCOUNTER → 2024-07-02 | Outpatient (CLI) | payer OTHER ==
--- NOTE | 2024-07-02 09:30 | US ---
EXAMINATION TYPE: US abdomen complete DATE OF EXAM: 07/02/2024 COMPARISON: 10/26/2023. 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 FINDINGS: EXAM MEASUREMENTS: Liver Length: 16.5 cm Gallbladder Wall: Surgically absent CBD: 0.7 cm Spleen: 10.4 cm Right Kidney: 9.2 x 5.0 x 4.6 cm Left Kidney: 10.8 x 4.4 x 4.6 cm Pancreas: wnl Liver: difficult to penetrate Gallbladder: Surgically absent Evidence for sonographic Pichardo's sign: no CBD: wnl Spleen: wnl Right Kidney: wnl Left Kidney: wnl Upper IVC: wnl Abd Aorta: distal portion gassed out The liver is homogenous. The intrahepatic portion of the IVC and proximal abdominal aorta are within normal limits. Common bile duct is unremarkable. The visualized portions of the pancreas are homog enous. The spleen is unremarkable. Kidneys are symmetric and free of hydronephrosis. No renal lesi ons are seen. IMPRESSION: 1. No evidence for acute process. 2. Hepatic steatosis. [facility], , 07/02/2024 9:27 AM
[2024-07-02 11:02] LABS: Basophils # (A) 0.04 X 10*3/uL (0.00-0.10); Basophils % (A) 0.4 %; Eosinophils # (A) 0.18 X 10*3/uL (0.04-0.35); Eosinophils % (A) 1.8 %; HGB 14.2 g/dL (12.0-15.0); Lymphocytes # (A) 3.15 X 10*3/uL (0.90-5.00); Lymphocytes % (A) 31.5 %; MCH 32.2 pg (27.0-32.0); MCHC 34.6 g/dL (32.0-37.0); Mean Platelet Volume 11.2 FL (9.5-12.2); Monocytes # (A) 0.76 X 10*3/uL (0.20-1.00); Monocytes % (A) 7.6 %; NRBC Per 100 WBC 0 X 10*3/uL (0.00-0.01); Neutrophils # (A) 5.84 X 10*3/uL (1.80-7.70); Neutrophils % (A) 58.5 %; Platelet Count 251 X 10*3/uL (140-440); RBC 4.41 X 10*6/uL (4.10-5.20); RDW 12.7 % (11.5-14.5); WBC 9.99 X 10*3/uL (4.50-10.00)
[2024-07-02 11:21] LABS: Alpha Fetoprotein, Tumor Mkr <3.00 ng/mL (0.00-7.90)
[2024-07-02 11:31] LABS: ALT 40 U/L (8-44); AST 30 U/L (13-35); Albumin 4.2 g/dL (3.8-4.9); Albumin/Globulin Ratio 1.31 Ratio (1.60-3.17); Alkaline Phosphatase 105 U/L (41-126); BUN/Creat Ratio 21.43 Ratio (12.00-20.00); Calcium 9.3 mg/dL (8.7-10.3); Chloride 106 mmol/L (96-109); Globulin 3.2 g/dL (1.6-3.3); Glucose 99 mg/dL (70-110); Potassium 4.2 mmol/L (3.5-5.5); Sodium 140 mmol/L (135-145); Total Bilirubin 0.5 mg/dL (0.3-1.2); Total Protein 7.4 g/dL (6.2-8.2)
== END | disposition home or self-care (01) ==
LOC: RADUSWWP 06:50
PROVIDERS: ATTEND Internal Medicine Gastroenterology
DX: B18.2 Chronic viral hepatitis C
CPT/HCPCS: 76700; 80053; 81596; 82105; 85025; 87522; 87902

== ENCOUNTER 2024-07-29 16:29 | Inpatient (IN) | payer OTHER ==
[2024-07-29 17:56] LABS: Basophils # (A) 0.1 k/uL (0-0.2); Basophils % (A) 0 %; Eosinophils # (A) 0.1 k/uL (0-0.7); Eosinophils % (A) 1 %; HCT 45.9 % (34.0-46.0); HGB 15.6 gm/dL (11.4-16.0); Lymphocytes % (A) 21 %; MCV 94.1 fL (80.0-100.0); Mean Platelet Volume 8.3; Monocytes # (A) 0.7 k/uL (0-1.0); Monocytes % (A) 5 %; Neutrophils # (A) 10.2 k/uL (1.3-7.7); Neutrophils % (A) 72 %; Platelet Count 273 k/uL (150-450); RBC 4.88 m/uL (3.80-5.40); RDW 12.6 % (11.5-15.5); WBC 14.2 k/uL (3.8-10.6)
[2024-07-29 18:07] LABS: ALT 46 U/L (4-34); AST 35 U/L (14-36); African American GFR (CKD) >90 (>60 ml/min/1.73 sqM); Albumin 4.7 g/dL (3.5-5.0); Alkaline Phosphatase 100 U/L (38-126); Amylase 42 U/L (30-110); Anion Gap 11 mmol/L; Blood Urea Nitrogen 18 mg/dL (7-17); Calcium 9.8 mg/dL (8.4-10.2); Carbon Dioxide 20 mmol/L (22-30); Chloride 107 mmol/L (98-107); Glucose 113 mg/dL (74-99); Lipase 71 U/L (23-300); Non-African American GFR(CKD) >90 (>60 ml/min/1.73 sqM); Potassium 4.1 mmol/L (3.5-5.1); Sodium 138 mmol/L (137-145); Total Bilirubin 0.8 mg/dL (0.2-1.3); Total Protein 8.4 g/dL (6.3-8.2)
[2024-07-29 18:09] LABS: Partial Thromboplastin Time 22.9 sec (22.0-30.0); Prothrombin Time 10.6 sec (10.0-12.5)
[2024-07-29] MEDS: SODIUM CHLORIDE 0.9% 1,000 ML IV STA ×2 (18:09→21:26)
[2024-07-29] MEDS: ONDANSETRON 4 MG/2 ML VIAL IVP STA (18:10)
[2024-07-29] MEDS: KETOROLAC 15 MG/ML 1 ML VIAL IVP STA (18:12)
[2024-07-29] MEDS: PANTOPRAZOLE 40 MG/10 ML VIAL IVP STA (18:13)
--- NOTE | 2024-07-29 19:52 | CT ---
EXAMINATION TYPE: CT abdomen pelvis w con DATE OF EXAM: 07/29/2024 COMPARISON: 10/26/2023 INDICATION: Abdominal pain, n/v/d. DLP: 1367.1 mGycm, Automated exposure control for dose reduction was used. CONTRAST: 100ml mL of Isovue 370. Study performed without Oral Contrast TECHNIQUE: Axial images were obtained from above the diaphragm to the pubic rami in the axial plane a t 5 mm thick sections. Reconstructed images are reviewed on the computer in the coronal plane. FINDINGS: Limited CT sections are obtained the lung bases. The lung bases are clear. CT ABDOMEN: Liver: Normal Spleen: Normal Pancreas: Normal Adrenal glands: Right adrenal gland is thickened and heterogenous density measuring 2.1 cm and 81 [place] nsfield units. Consider dynamic CT or MRI follow-up for additional evaluation. Adenoma angiomyolipoma and metastasis could be considered. Left adrenal gland appears normal Gallbladder: Surgically absent Kidneys: No masses are evident. No hydronephrosis is present. No cysts are present. Delayed images were obtained through the kidneys, which remain unremarkable. Aorta: Normal Inferior vena cava: Normal. CT PELVIS: There are multiple fluid-filled small bowel loops which are somewhat prominent. The colon is decompre ssed. A zone of transition is in the anterior left mid ileum a example series 202 image 53. Underlyin g obstructing etiology however is not identified. Some wall thickening may be present, ileitis could be considered. Study is without oral contrast limiting bowel evaluation. Appendix: Not visualized. Urinary bladder: Normal. Genitourinary structures: Uterus is normal. Adnexa are unremarkable Osseous structures: No suspicious lytic or sclerotic lesions. IMPRESSION: 1. Ileus versus partial small bowel obstruction in the mid ileum. Gastroenteritis could be considere d. 2. Nodular appearance to the right adrenal gland. Follow-up dynamic CT or MRI can be utilized when th e patient is stable. [facility], , 07/29/2024 7:50 PM
[2024-07-29 20:27] LABS: Appearance,Urine Clear (Clear); Bilirubin,Urine Negative (Negative); Blood,Urine Negative (Negative); Color,Urine Light Yellow; Glucose,Urine (UA) Negative (Negative); Ketones,Urine Negative (Negative); Leukocyte Esterase,Urine Negative (Negative); Nitrite,Urine Negative (Negative); Protein,Urine Trace (Negative); Urobilinogen,Urine <2.0 mg/dL (<2.0)
[2024-07-29 20:30] LABS: Specific Gravity,Urine >1.050 (1.001-1.035)
[2024-07-29] MEDS ORDERED: NALOXONE 0.4 MG/ML 1 ML VIAL IV PRN (21:25)
[2024-07-29] MEDS ORDERED: ONDANSETRON 4 MG/2 ML VIAL IVP PRN (21:25)
[2024-07-29] MEDS: MORPHINE SULFATE 4 MG/ML SYRINGE IVP STA (21:26)
--- NOTE | 2024-07-29 21:27 | ED ---
General Adult HPI - General Chief complaint: Nausea/Vomiting/Diarrhea Stated complaint: N/V Time Seen by Provider: 07/29/24 17:35 Source: patient, EMS, RN notes reviewed, old records reviewed Mode of arrival: EMS Limitations: no limitations - History of Present Illness Initial comments: Is a 54-year-old female presents emergency department for 1 day history of abdominal complaints. Complaining of generalized abdominal discomfort, liquid watery stools, brown emesis. States it started yesterday. Is still having symptoms. No focal abdominal pain. No chest pain or shortness of breath. Does have a history of abdominal surgeries, IBS and cholecystectomy. Thinks it may be related to influenza infection but presents for further evaluation at this time. Denies any fevers or chills. Denies urinary complaints. Denies vaginal discharge or bleeding. Presents for further evaluation. - Related Data Home Medications Medication Instructions Recorded Confirmed Ibuprofen [Motrin] 800 mg PO TID PRN 04/21/18 07/29/24 Albuterol Inhaler [Ventolin Hfa 1 - 2 puff INHALATION RT-Q6H PRN 03/21/24 07/29/24 Inhaler] Budesonide-Formot 160-4.5 Mcg 2 puff INHALATION RT-BID 03/21/24 07/29/24 [Symbicort 160-4.5 Mcg Inhaler] Fexofenadine HCl [Slime Allergy] 180 mg PO DAILY 03/21/24 07/29/24 Meloxicam [Mobic] 7.5 mg PO DAILY PRN 03/21/24 07/29/24 Pantoprazole [Protonix] 40 mg PO DAILY 03/21/24 07/29/24 Semaglutide [Wegovy] 0.5 mg SQ TU 03/21/24 07/29/24 Venlafaxine HCl ER [Effexor Xr] 37.5 mg PO DAILY 03/21/24 07/29/24 Docusate [Colace] 200 mg PO DAILY 07/29/24 07/29/24 Multivit/Iron Sulf/Folic Acid 1 tab PO DAILY 07/29/24 07/29/24 [Multivitamin with Iron] Allergies Allergy/AdvReac Type Severity Reaction Status Date / Time No Known Allergies Allergy Verified 07/29/24 21:02 Review of Systems ROS Statement: Those systems with pertinent positive or pertinent negative responses have been documented in the HPI. Review of Systems: CONST: Denies fever EYES: Denies blurry vision ENT: Denies nasal congestion C/V: Denies Chest pain RESP: Denies shortness of breath GI: Endorses abdominal pain : Denies dysuria SKIN: Denies rash. MSK: Denies joint pain. NEURO: Denies headache ROS Other: All systems not noted in ROS Statement are negative. Past Medical History Past Medical History: COPD, GERD/Reflux Additional Past Medical History / Comment(s): IBS. UNEXPLAINED WT GAIN History of Any Multi-Drug Resistant Organisms: None Reported Past Surgical History: Cholecystectomy Past Anesthesia/Blood Transfusion Reactions: No Reported Reaction Additional Past Anesthesia/Blood Transfusion Reaction / Comment(s): [place] teeth extraction Past Psychological History: No Psychological Hx Reported Smoking Status: Current every day smoker Past Alcohol Use History: None Reported Past Drug Use History: None Reported - Past Family History Mother Additional Family Medical History / Comment(s): EMPHYSEMA Father Family Medical History: Cancer Additional Family Medical History / Comment(s): Cancer originated in lungs. General Exam - General Exam Comments Initial Comments: General: Appears in no acute distress. HEAD: Normal with no signs of head trauma. EYES: PERRLA, EOMI, conjunctiva normal, no discharge. ENT: Hearing grossly intact, normal oropharynx. RESPIRATORY: Clear breath sounds bilaterally. No wheezes, rales, or rhonchi. C/V: Regular rate and rhythm. S1 and S2 auscultated, no edema, peripheral pulses 2+ and intact throughout ABD: Abdomen is soft, nondistended. Diffuse tenderness to palpation with no focal area. No guarding or rebound tenderness. No peritoneal signs. EXT: Normal range of motion, no obvious deformity SKIN: No rashes or lesions observed on exposed skin. NEURO: Alert and oriented x 4. Limitations: no limitations Course Vital Signs 07/29/24 07/29/24 16:33 20:15 Temperature 98.2 F Pulse Rate 98 74 Respiratory 18 18 Rate Blood Pressure 150/93 119/72 O2 Sat by Pulse 96 96 Oximetry Medical Decision Making - Medical Decision Making Was pt. sent in by a medical professional or institution (, PA, PAN GREASER, urgent care, hospital, or [facility]...) When possible be specific @ -No Did you speak to anyone other than the patient for history (EMS, parent, family, police, friend...)? What history was obtained from this source @ -No Did you review nursing and triage notes (agree or disagree)? Why? @ -I reviewed and agree with nursing and triage notes Were old charts reviewed (outside hosp., previous admission, EMS record, old EKG, old radiological studies, urgent care reports/EKG's, ch[facility] records)? Report findings @ -No old charts were reviewed Differential Diagnosis (chest pain, altered mental status, abdominal pain women, abdominal pain men, vaginal bleeding, weakness, fever, dyspnea, syncope, headache, dizziness, GI bleed, back pain, seizure, CVA, palpatations, mental hea lth, musculoskeletal)? @ -Differential Abdominal Pain Women: Appendicitis, Cholecystitis, diverticulosis, ischemic bowel, pancreatitis, hepatitis, UTI, gastroenteritis, AAA, incarcerated hernia, bowel obstruction, constipation, inflammatory bowel, hepatitis, peptic ulcer disease, splenic infarction, perforated viscus, vulvitis, ovarian torsion, PID, kidney stone, placenta abruption, this is not meant to be an all-inclusive list EKG interpreted by me (3pts min.). @ -None done X-rays interpreted by me (1pt min.). @ -None done CT interpreted by me (1pt min.). @ -CT abdomen pelvis reveals gastroenteritis versus ileus versus partial small bowel obstruction. U/S interpreted by me (1pt. min.). @ -None done What testing was considered but not performed or refused? (CT, X-rays, U/S, labs)? Why? @ -None What meds were considered but not given or refused? Why? @ -None Did you discuss the management of the patient with other professionals (professionals i.e. DrJusta, PA, PAN GREASER, lab, RT, psych nurse, social security benefits interviewer, postage machine operator, teacher, chief digital officer, ed case manager)? Give summary @ -Discussed with on-call surgeon, Dr. Mesa who was in agreement with plan for admission to medicine and heme-onc as consult. Was in agreement with plan for holding NG tube, bowel rest, IV fluid hydration and symptomatic treatment. Discussed with admitting provider, Dr. Gunn who accepted the admission. Was smoking cessation discussed for >3mins.? @ -No Was critical care preformed (if so, how long)? @ -No Were there social determinants of health that impacted care today? How? (Homelessness, low income, unemployed, alcoholism, drug addiction, transportation, low edu. Level, literacy, decrease access to med. care, fci, rehab)? @ -No Was there de-escalation of care discussed even if they declined (Discuss DNR or withdrawal of care, Hospice)? DNR status @ -No What co-morbidities impacted this encounter? (DM, HTN, Smoking, COPD, CAD, Cancer, CVA, ARF, Chemo, Hep., AIDS, mental health diagnosis, sleep apnea, morbid obesity)? @ -None Was patient admitted / discharged? Hospital course, mention meds given and route, prescriptions, significant lab abnormalities, going to OR and other pertinent info. @ -Patient presents emergency department for diarrhea that is more watery as well as brown emesis. He has abdominal pain. Will obtain abdominal labs as well as CT imaging. Patient will be given IV analgesia medications, fluids, antiemetics. She was in agreement this plan. Vital signs are within acceptable limits. Laboratory studies remarkable for mild leukocytosis of 14 which is likely reac tive. Lactic acid within acceptable limits. Remainder the labs unremarkable. CT imaging shows gastroenteritis versus partial small bowel obstruction. More concern for partial small bowel obstruction considering her emesis is brown. I discussed the case with the on-call surgeon Dr. Mesa who accepted the consult was agreed with plan for admission, bowel rest and n.p.o., IV fluid hydration and symptomatic control. Was in agreement with no NG tube. Spoke with PCP Dr. Gunn who accepted the admission. Undiagnosed new problem with uncertain prognosis? @ -No Drug Therapy requiring intensive monitoring for toxicity (Heparin, Nitro, Insulin, Cardizem)? @ -No Were any procedures done? @ -No Diagnosis/symptom? @ -Small bowel obstruction Acute, or Chronic, or Acute on Chronic? @ -Acute Uncomplicated (without systemic symptoms) or Complicated (systemic symptoms)? @ -Complicated Side effects of treatment? @ -No Exacerbation, Progression, or Severe Exacerbation? @ -No Poses a threat to life or bodily function? How? (Chest pain, [place], [place], pneumonia, PE, COPD, DKA, ARF, appy, cholecystitis, CVA, Diverticulitis, Homicidal, Suicidal, threat to staff... and all critical care pts) @ -yes - Lab Data Result diagrams: 07/29/24 17:45 07/29/24 17:45 Lab Results 07/29/24 07/29/24 07/29/24 Range/Units 17:45 17:45 17:45 WBC 14.2 H (3.8-10.6) k/uL RBC 4.88 (3.80-5.40) m/uL Hgb 15.6 (11.4-16.0) gm/dL Hct 45.9 (34.0-46.0) % MCV 94.1 (80.0-100.0) fL MCH 32.0 (25.0-35.0) pg MCHC 34.0 (31.0-37.0) g/dL RDW 12.6 (11.5-15.5) % Plt Count 273 (150-450) k/uL MPV 8.3 Neutrophils % 72 % Lymphocytes % 21 % Monocytes % 5 % Eosinophils % 1 % Basophils % 0 % Neutrophils # 10.2 H (1.3-7.7) k/uL Lymphocytes # 3.0 (1.0-4.8) k/uL Monocytes # 0.7 (0-1.0) k/uL Eosinophils # 0.1 (0-0.7) k/uL Basophils # 0.1 (0-0.2) k/uL PT 10.6 (10.0-12.5) sec INR 1.0 (<1.2) APTT 22.9 (22.0-30.0) sec Sodium (137-145) mmol/L Potassium (3.5-5.1) mmol/L Chloride (98-107) mmol/L Carbon Dioxide (22-30) mmol/L Anion Gap mmol/L BUN (7-17) mg/dL Creatinine (0.52-1.04) mg/dL Est GFR (CKD-EPI)AfAm (>60 ml/min/1.73 sqM) Est GFR (CKD-EPI)NonAf (>60 ml/min/1.73 sqM) Glucose (74-99) mg/dL Plasma Lactic Acid Laz (0.7-2.0) mmol/L Calcium (8.4-10.2) mg/dL Total Bilirubin (0.2-1.3) mg/dL AST (14-36) U/L ALT (4-34) U/L Alkaline Phosphatase (38-126) U/L Total Protein (6.3-8.2) g/dL Albumin (3.5-5.0) g/dL Amylase (30-110) U/L Lipase (23-300) U/L Urine Color Light Yellow Urine Appearance Clear (Clear) Urine pH 6.0 (5.0-8.0) Ur Specific [place] >1.050 H (1.001-1.035) Urine Protein Trace H (Negative) Urine Glucose (UA) Negative (Negative) Urine Ketones Negative (Negative) Urine Blood Negative (Negative) Urine Nitrite Negative (Negative) Urine Bilirubin Negative (Negative) Urine Urobilinogen <2.0 (<2.0) mg/dL Ur Leukocyte Esterase Negative (Negative) Influenza Type A (PCR) (Not Detectd) Influenza Type B (PCR) (Not Detectd) RSV (PCR) (Not Detectd) SARS-CoV-2 (PCR) (Not Detectd) 07/29/24 07/29/24 07/29/24 Range/Units 17:45 17:45 17:45 WBC (3.8-10.6) k/uL RBC (3.80-5.40) m/uL Hgb (11.4-16.0) gm/dL Hct (34.0-46.0) % MCV (80.0-100.0) fL MCH (25.0-35.0) pg MCHC (31.0-37.0) g/dL RDW (11.5-15.5) % Plt Count (150-450) k/uL MPV Neutrophils % % Lymphocytes % % Monocytes % % Eosinophils % % Basophils % % Neutrophils # (1.3-7.7) k/uL Lymphocytes # (1.0-4.8) k/uL Monocytes # (0-1.0) k/uL Eosinophils # (0-0.7) k/uL Basophils # (0-0.2) k/uL PT (10.0-12.5) sec INR (<1.2) APTT (22.0-30.0) sec Sodium 138 (137-145) mmol/L Potassium 4.1 (3.5-5.1) mmol/L Chloride 107 (98-107) mmol/L Carbon Dioxide 20 L (22-30) mmol/L Anion Gap 11 mmol/L BUN 18 H (7-17) mg/dL Creatinine 0.63 (0.52-1.04) mg/dL Est GFR (CKD-EPI)AfAm >90 (>60 ml/min/1.73 sqM) Est GFR (CKD-EPI)NonAf >90 (>60 ml/min/1.73 sqM) Glucose 113 H (74-99) mg/dL Plasma Lactic Acid Laz 0.8 (0.7-2.0) mmol/L Calcium 9.8 (8.4-10.2) mg/dL Total Bilirubin 0.8 (0.2-1.3) mg/dL AST 35 (14-36) U/L ALT 46 H (4-34) U/L Alkaline Phosphatase 100 (38-126) U/L Total Protein 8.4 H (6.3-8.2) g/dL Albumin 4.7 (3.5-5.0) g/dL Amylase 42 (30-110) U/L Lipase 71 (23-300) U/L Urine Color Urine Appearance (Clear) Urine pH (5.0-8.0) Ur Specific [place] (1.001-1.035) Urine Protein (Negative) Urine Glucose (UA) (Negative) Urine Ketones (Negative) Urine Blood (Negative) Urine Nitrite (Negative) Urine Bilirubin (Negative) Urine Urobilinogen (<2.0) mg/dL Ur Leukocyte Esterase (Negative) Influenza Type A (PCR) Not Detected (Not Detectd) Influenza Type B (PCR) Not Detected (Not Detectd) RSV (PCR) Not Detected (Not Detectd) SARS-CoV-2 (PCR) Not Detected (Not Detectd) Disposition Clinical Impression: Partial small bowel obstruction Disposition: ADMITTED IP TO THIS [facility] Condition: Stable Time of Disposition: 21:10
[2024-07-29] MEDS: HEPARIN SODIUM,PORCINE 5,000 UNIT/ML 1 ML VIAL SQ SCH (23:17)
[2024-07-30] MEDS: MORPHINE SULFATE 4 MG/ML SYRINGE IV PRN (02:03)
[2024-07-30 04:14] LABS: Basophils % (A) 0 %; Eosinophils # (A) 0.1 k/uL (0-0.7); Eosinophils % (A) 1 %; HCT 41.7 % (34.0-46.0); HGB 13.5 gm/dL (11.4-16.0); Lymphocytes # (A) 2.6 k/uL (1.0-4.8); Lymphocytes % (A) 24 %; MCH 31.1 pg (25.0-35.0); MCHC 32.4 g/dL (31.0-37.0); MCV 96.1 fL (80.0-100.0); Mean Platelet Volume 8.5; Monocytes # (A) 0.7 k/uL (0-1.0); Monocytes % (A) 6 %; Neutrophils # (A) 7.5 k/uL (1.3-7.7); Neutrophils % (A) 68 %; Platelet Count 217 k/uL (150-450); RBC 4.34 m/uL (3.80-5.40); RDW 12.7 % (11.5-15.5); WBC 11.1 k/uL (3.8-10.6)
[2024-07-30 04:31] LABS: ALT 72 U/L (4-34); AST 84 U/L (14-36); African American GFR (CKD) >90 (>60 ml/min/1.73 sqM); Albumin 3.5 g/dL (3.5-5.0); Alkaline Phosphatase 100 U/L (38-126); Anion Gap 5 mmol/L; Blood Urea Nitrogen 17 mg/dL (7-17); Calcium 8.5 mg/dL (8.4-10.2); Carbon Dioxide 21 mmol/L (22-30); Chloride 113 mmol/L (98-107); Glucose 88 mg/dL (74-99); Non-African American GFR(CKD) >90 (>60 ml/min/1.73 sqM); Potassium 3.9 mmol/L (3.5-5.1); Sodium 139 mmol/L (137-145); Total Protein 6.7 g/dL (6.3-8.2)
[2024-07-30] MEDS: PANTOPRAZOLE 40 MG/10 ML VIAL IV SCH (08:58)
--- NOTE | 2024-07-30 14:41 | P.GSCN ---
History of Present Illness Consult date: 07/30/24 History of present illness: CHIEF COMPLAINT: Nausea, vomiting, diarrhea HISTORY OF PRESENT ILLNESS: This is a 54-year-old female who presented to hospital with complaints of right upper quadrant abdominal pain with nausea vomiting and diarrhea. Patient reports that Sunday evening she had [place] for dinner at a restaurant and then a little while after she was having diarrhea every hour. She also had episode of vomiting. She was concerned that the 1 episode of emesis did contain what look like stool. Patient does feel bloated. Patient reports no blood in her stools. She does have a history of constipation. Her last EGD and colonoscopy she reports was in the summer 2023 and she had polyps removed. Patient's prior surgical history does include cholecystectomy. She had a CT scan abdomen and pelvis which reported ileus versus partial small bowel obstruction and concerns for possible gastritis. Patient denies any sick contacts. She does report still feeling slightly bloated. PAST MEDICAL HISTORY: Hepatitis C has not started treatment yet, COPD, GERD, IBS PAST SURGICAL HISTORY: Cholecystectomy MEDICATIONS: See below ALLERGIES: See below SOCIAL HISTORY: No illicit drug use. REVIEW OF SYSTEMS: CONSTITUTIONAL: Denies fever or chills. HEENT: Denies blurred vision, vision changes, or eye pain. Denies hemoptysis CARDIOVASCULAR: Denies chest pain or pressure. RESPIRATORY: No shortness of breath. GASTROINTESTINAL: See HPI for pertinent findings HEMATOLOGIC: Denies bleeding disorders. GENITOURINARY: Denies any blood in urine or increased urinary frequency. SKIN: Denies pruitis. Denies rash. PHYSICAL EXAM: VITAL SIGNS: Reviewed GENERAL: Well-developed in no acute distress. HEENT: No sclera icterus. Extraocular movements grossly intact. Moist buccal mucosa. Head is atraumatic, normocephalic. No nasal drainage. ABDOMEN: Soft. Mildly distended. Diffuse tenderness. No guarding. NEUROLOGIC: Alert and oriented. Cranial nerves II through XII grossly intact. LABORATORY DATA: WBC 14.2 down to 11.1 Hgb 13.5 platelets 217 Sodium is 139 potassium 3.9 creatinine 0.60 Total bilirubin 1.0 AST 84 ALT 72 Lipase 71 IMAGING: CT scan abdomen pelvis reports ileus versus partial small bowel obstruction in the mid ileum. Gastroenteritis could be considered. Nodular appearance to the right adrenal gland. ASSESSMENT: 1. Possible gastroenteritis 2. Abdominal pain with vomiting and diarrhea PLAN: -Start clear liquid diet -Continue IV fluid -Continue supportive care -Continue to monitor Physician Special Shopper note has been reviewed by physician. Signing provider agrees with the documented findings, assessment, and plan of care. Past Medical History Past Medical History: COPD, GERD/Reflux, Sleep Apnea/CPAP/BIPAP Additional Past Medical History / Comment(s): IBS. UNEXPLAINED WT GAIN, cpap History of Any Multi-Drug Resistant Organisms: None Reported Past Surgical History: Cholecystectomy Past Anesthesia/Blood Transfusion Reactions: No Reported Reaction Additional Past Anesthesia/Blood Transfusion Reaction / Comm: [place] teeth extraction Past Psychological History: No Psychological Hx Reported Smoking Status: Current every day smoker Past Alcohol Use History: None Reported Additional Past Alcohol Use History / Comment(s): 2 packs/2 days Past Drug Use History: None Reported - Past Family History Mother Additional Family Medical History / Comment(s): EMPHYSEMA Father Family Medical History: Cancer Additional Family Medical History / Comment(s): Cancer originated in lungs. Medications and Allergies Home Medications Medication Instructions Recorded Confirmed Type Ibuprofen [Motrin] 800 mg PO TID PRN 04/21/18 07/29/24 History Albuterol Inhaler [Ventolin Hfa 1 - 2 puff INHALATION RT-Q6H PRN 03/21/24 07/29/24 History Inhaler] Budesonide-Formot 160-4.5 Mcg 2 puff INHALATION RT-BID 03/21/24 07/29/24 History [Symbicort 160-4.5 Mcg Inhaler] Fexofenadine HCl [Slime Allergy] 180 mg PO DAILY 03/21/24 07/29/24 History Meloxicam [Mobic] 7.5 mg PO DAILY PRN 03/21/24 07/29/24 History Pantoprazole [Protonix] 40 mg PO DAILY 03/21/24 07/29/24 History Semaglutide [Wegovy] 0.5 mg SQ TU 03/21/24 07/29/24 History Venlafaxine HCl ER [Effexor Xr] 37.5 mg PO DAILY 03/21/24 07/29/24 History Docusate [Colace] 200 mg PO DAILY 07/29/24 07/29/24 History Multivit/Iron Sulf/Folic Acid 1 tab PO DAILY 07/29/24 07/29/24 History [Multivitamin with Iron] Allergies Allergy/AdvReac Type Severity Reaction Status Date / Time No Known Allergies Allergy Verified 07/29/24 21:02 Surgical - Exam Osteopathic Statement: *. No significant issues noted on an osteopathic structural exam other than those noted in the History and Physical/Consult. Vital Signs Temp Pulse Resp BP Pulse Ox 98.2 F 98 18 150/93 96 07/29/24 16:33 07/29/24 16:33 07/29/24 16:33 07/29/24 16:33 07/29/24 16:33 Results - Labs 07/30/24 03:28 07/30/24 03:28 Abnormal Lab Results - Last 24 Hours (Table) 07/29/24 07/29/24 07/29/24 Range/Units 17:45 17:45 17:45 WBC 14.2 H (3.8-10.6) k/uL Neutrophils # 10.2 H (1.3-7.7) k/uL Chloride (98-107) mmol/L Carbon Dioxide 20 L (22-30) mmol/L BUN 18 H (7-17) mg/dL Glucose 113 H (74-99) mg/dL AST (14-36) U/L ALT 46 H (4-34) U/L Total Protein 8.4 H (6.3-8.2) g/dL Ur Specific [place] >1.050 H (1.001-1.035) Urine Protein Trace H (Negative) 07/30/24 07/30/24 Range/Units 03:28 03:28 WBC 11.1 H (3.8-10.6) k/uL Neutrophils # (1.3-7.7) k/uL Chloride 113 H (98-107) mmol/L Carbon Dioxide 21 L (22-30) mmol/L BUN (7-17) mg/dL Glucose (74-99) mg/dL AST 84 H (14-36) U/L ALT 72 H (4-34) U/L Total Protein (6.3-8.2) g/dL Ur Specific [place] (1.001-1.035) Urine Protein (Negative) Diabetes panel 07/29/24 07/30/24 Range/Units 17:45 03:28 Sodium 138 139 (137-145) mmol/L Potassium 4.1 3.9 (3.5-5.1) mmol/L Chloride 107 113 H (98-107) mmol/L Carbon Dioxide 20 L 21 L (22-30) mmol/L BUN 18 H 17 (7-17) mg/dL Creatinine 0.63 0.60 (0.52-1.04) mg/dL Glucose 113 H 88 (74-99) mg/dL Calcium 9.8 8.5 (8.4-10.2) mg/dL AST 35 84 H (14-36) U/L ALT 46 H 72 H (4-34) U/L Alkaline Phosphatase 100 100 (38-126) U/L Total Protein 8.4 H 6.7 (6.3-8.2) g/dL Albumin 4.7 3.5 (3.5-5.0) g/dL Calcium panel 07/29/24 07/30/24 Range/Units 17:45 03:28 Calcium 9.8 8.5 (8.4-10.2) mg/dL Albumin 4.7 3.5 (3.5-5.0) g/dL Pituitary panel 07/29/24 07/30/24 Range/Units 17:45 03:28 Sodium 138 139 (137-145) mmol/L Potassium 4.1 3.9 (3.5-5.1) mmol/L Chloride 107 113 H (98-107) mmol/L Carbon Dioxide 20 L 21 L (22-30) mmol/L BUN 18 H 17 (7-17) mg/dL Creatinine 0.63 0.60 (0.52-1.04) mg/dL Glucose 113 H 88 (74-99) mg/dL Calcium 9.8 8.5 (8.4-10.2) mg/dL Adrenal panel 07/29/24 07/30/24 Range/Units 17:45 03:28 Sodium 138 139 (137-145) mmol/L Potassium 4.1 3.9 (3.5-5.1) mmol/L Chloride 107 113 H (98-107) mmol/L Carbon Dioxide 20 L 21 L (22-30) mmol/L BUN 18 H 17 (7-17) mg/dL Creatinine 0.63 0.60 (0.52-1.04) mg/dL Glucose 113 H 88 (74-99) mg/dL Calcium 9.8 8.5 (8.4-10.2) mg/dL Total Bilirubin 0.8 1.0 (0.2-1.3) mg/dL AST 35 84 H (14-36) U/L ALT 46 H 72 H (4-34) U/L Alkaline Phosphatase 100 100 (38-126) U/L Total Protein 8.4 H 6.7 (6.3-8.2) g/dL Albumin 4.7 3.5 (3.5-5.0) g/dL Assessment and Plan Assessment: 54 yo female w/ gastroenteritis -no surgical intervention at this time -anticipate viral illness will run its course -advance diet as tolerated Time with Patient: Less than 30
[2024-07-30] MEDS: SODIUM CHLORIDE 0.9% 1,000 ML IV SCH (17:13)
[2024-07-30] MEDS: SYMBICORT 160-4.5 MCG INHALER INHALATION SCH (20:51)
[2024-07-31] MEDS: DOCUSATE 100 MG CAP PO SCH (15:44)
--- NOTE | 2024-07-31 15:52 | XR ---
EXAMINATION TYPE: XR abdomen 2V DATE OF EXAM: 07/31/2024 2:58 PM COMPARISON: CT 07/29/2024 CLINICAL INDICATION: Female, 54 years old with history of abdominal pain, , FINDINGS: Prominent gassy colon, transverse colon distended up to 6.7 cm. A couple mid abdominal smal l bowel loops may be mildly dilated 3.6 cm. Small bowel previously distended up to 2.7 cm. No differential air-fluid levels are seen. No evidence for free intraperitoneal air. Cholecystectomy clips. IMPRESSION: 1. A couple mid abdominal small bowel loops now dilated up to 3.6 cm. Consider ongoing enteritis/ileu s. 2. Colon now shows prominent air with the transverse colon distended up to 6.7 cm. Possible ileus. Th e presence of colonic air argues against small bowel obstruction. [facility], , 07/31/2024 3:50 PM
--- NOTE | 2024-07-31 16:12 | P.PN ---
Subjective Progress Note Date: 07/31/24 Patient seen and examined at bedside. States abdominal pain is much improved. Not having any flatus or bowel function at this time. Tolerating clear liquid diet without nausea. Objective - Vital Signs Vital signs: Vital Signs Temp 97.8 F 07/31/24 13:08 Pulse 84 07/31/24 13:08 Resp 17 07/31/24 13:08 BP 117/72 07/31/24 13:08 Pulse Ox 93 L 07/31/24 13:08 FiO2 Intake & Output 07/30/24 07/31/24 07/31/24 18:59 06:59 18:59 Intake Total 1830 Balance 1830 Intake: Oral 1830 Other: Voiding Method Toilet Toilet # Voids 2 3 - Constitutional General appearance: Present: cooperative, no acute distress - Gastrointestinal Gastrointestinal Comment(s): Soft, mildly generalized tenderness, nondistended, no rebound, no guarding - Psychiatric Psychiatric: Present: A&O x's 3 - Labs CBC & Chem 7: 07/30/24 03:28 07/30/24 03:28 Assessment and Plan Plan: 54-year-old female with ileus versus enteritis that appears to be resolving. Continue clear liquid diet at this time. Abdominal x-ray ordered and reviewed with continued mildly dilated loops of bowel. Continue current regimen. Marnie Mendiola DO
[2024-07-31] MEDS: NA PHOS,M-B/NA PHOS,DI-BA 133 ML ENEMA RECTAL ONE (23:17)
[2024-08-01 08:50] VITALS: TEMP 97.9
[2024-08-01] MEDS: NA PHOS,M-B/NA PHOS,DI-BA 133 ML ENEMA RECTAL ONE (11:59)
--- NOTE | 2024-08-01 13:49 | P.PN ---
Subjective Progress Note Date: 08/01/24 SURGICAL PROGRESS NOTE CHIEF COMPLAINT: Gastroenteritis HISTORY OF PRESENT ILLNESS: Patient reports she is feeling better today. She is having flatus. Denies any nausea or vomiting. She reports her abdominal pain has improved. She tolerated the clear liquid diet. Afebrile. No new labs. Abdominal x-rayReports couple mid abdominal small bowel loops now dilated up to 3.6 cm consider ongoing enteritis/ileus. Colon now shows prominent air with the transverse colon distended up to 6.7 cm. Possible ileus. Presence of colonic area argues against small bowel obstruction. PHYSICAL EXAM: VITAL SIGNS: Reviewed. GENERAL: Well-developed in no acute distress. ABDOMEN: Soft. Nondistended. Nontender. NEUROLOGIC: Alert and oriented. Cranial nerves II through XII grossly intact. ASSESSMENT: 1. Gastroenteritis 2. Abdominal ileus PLAN: -Advance diet to regular -Patient can be discharged surgical standpoint if tolerating diet -Okay for patient to have enema Physician Swinging Cut Off Saw Operator note has been reviewed by physician. Signing provider agrees with the documented findings, assessment, and plan of care. Objective - Vital Signs Vital signs: Vital Signs Temp 97.9 F 08/01/24 06:55 Pulse 52 L 08/01/24 08:15 Resp 17 08/01/24 08:15 BP 111/65 08/01/24 06:55 Pulse Ox 99 08/01/24 06:55 FiO2 Intake & Output 07/31/24 08/01/24 08/01/24 18:59 06:59 18:59 Other: Voiding Method Toilet Toilet Toilet # Voids 3 3 - Labs CBC & Chem 7: 07/30/24 03:28 07/30/24 03:28 Assessment and Plan Assessment: 54 yo female w/ gastroenteritis -resolving viral gastroenteritis -advanced diet as tolerated -stable for discharge Time with Patient: Less than 30
[2024-08-01 15:09] VITALS: BP 145/75; PULSE 73; RESP 16
--- NOTE | 2024-08-02 22:44 | HP ---
HISTORY AND PHYSICAL CHIEF COMPLAINT: Abdominal pain and possible bowel obstruction. HISTORY OF PRESENT ILLNESS: Another admission for this 54-year-old female. She came to the emergency room complaining of lower abdominal pain with nausea. She has had no hematemesis, melena, hematochezia, fever, chills, etc. Remainder of her history is unremarkable. Laboratory studies in the emergency room revealed a white count of 14,200 and AST of 35 and ALT of 46. PHYSICAL EXAMINATION: VITAL SIGNS: Normal. HEAD, EARS, EYES, NOSE, MOUTH, AND THROAT: Normal. CHEST: Clear. CARDIAC: Normal. ABDOMEN: Slightly protuberant and soft and she is tender in the left lower quadrant. There is slight rebound. Bowel sounds are present. EXTREMITIES: Normal. IMPRESSION: 1. Lower abdominal pain and small bowel obstruction. 2. Elevated liver function studies. PLAN: 1. Bed rest. 2. IV fluids. 3. Monitor her GI function. 4. Follow her hepatic enzymes. MMODL / IJN: [id number] /
--- NOTE | 2024-08-02 22:56 | DS ---
DISCHARGE SUMMARY CHIEF COMPLAINT: Bowel obstruction. HISTORY OF PRESENT ILLNESS AND PHYSICAL EXAMINATION: Details of this lady's history and physical can be found in the initial workup. LABORATORY STUDIES: While she was in the hospital, she had laboratory studies, details of which could be found in the laboratory section of her chart. COURSE IN HOSPITAL: After admission, she was placed on bedrest, started on intravenous fluids, and followed for small-bowel obstruction. Her pain slowly subsided and bowel sounds returned. Her diet was advanced and she did well. She is back to normal and felt that she could be discharged on the and she will go home on her usual activity, diet, and medication. FINAL DIAGNOSES: 1. Small bowel obstruction. 2. Hepatitis C. OPERATIONS: None. CONSULTATION: None. She is improved. REBEL / MERY: [id number] /
--- NOTE | 2024-08-02 23:29 | PN ---
PROGRESS NOTE DATE OF SERVICE: 07/30/2024 CHIEF COMPLAINT: Bowel obstruction. HISTORY OF PRESENT ILLNESS: This lady is still having quite a bit of abdominal discomfort. She is not vomiting. LABORATORY STUDIES: Improved with a white count down to 11,100. Her AST is up, however at 84, and her ALT has gone from 46 to 72. PHYSICAL EXAMINATION: CHEST: Clear. CARDIAC: Normal. GASTROINTESTINAL: She still has some generalized tenderness. Bowel sounds are present. IMPRESSION: 1. Bowel obstruction. 2. Elevated liver function studies. PLAN: Continue to monitor her bowel function. She is not vomiting. She is passing small amounts of gas. MMODL / IJN: [id number] /
--- NOTE | 2024-08-02 23:44 | PN ---
PROGRESS NOTE DATE OF SERVICE: 07/31/2024 CHIEF COMPLAINT: Bowel obstruction. HISTORY OF PRESENT ILLNESS: This lady seems to be doing a little bit better. She states that if she gets Colace that she will be able to start moving her bowels. We will also give her a Fleet Enema. PHYSICAL EXAMINATION: ABDOMEN: Soft and bowel sounds are present. CHEST: Clear. IMPRESSION: Partial incomplete bowel obstruction. PLAN: Try Fleet Enema along with Colace. MMODL / IJN: [id number] /
== END 2024-08-01 19:04 | disposition home or self-care (01) | DRG 247 ==
LOC: EC 16:29 → 4SSUR 21:27 → OBSVTOIN 21:28 → 4SSUR 22:10
PROVIDERS: ADMIT Family Medicine; ATTEND Family Medicine
DX: K56.600 Partial intestinal obstruction, unspecified as to cause (principal); B19.20 Unspecified viral hepatitis C without hepatic coma; K56.7 Ileus, unspecified; A08.4 Viral intestinal infection, unspecified; Z79.1 Long term (current) use of non-steroidal anti-inflammatories (NSAID); Z79.51 Long term (current) use of inhaled steroids; Z79.899 Other long term (current) drug therapy
CPT/HCPCS: 36415; 74019; 74177; 80053; 81003; 82150; 83605; 83690; 85025; 85610; 85730; 87636; 94640; 96361; 96374; 96375; 99285